=== PATIENT | female | born 1950 | race African-American/Black ===

== ENCOUNTER 2021-07-20 15:24 | Inpatient (IN) | payer MEDICARE, BC ==
[~2021-07-20] VITALS: Ht 165.1 cm; Wt 48.1 kg
[2021-07-20] MEDS ORDERED: IV NORMAL SALINE 1000ML BAG 1,000 ML IV ONE (15:45)
--- NOTE | 2021-07-20 15:51 | PHYS DOC ---
General Adult EDM: Chief Complaint: WEAKNESS/GENERALIZED HPI: HPI: Patient is a 71 year old female who presents with here by EMS after they were called to her home when family went to check on her and she has not been out of bed for 2 days. Patient states last night she took her medications which 2 day s. Patient states she is just too weak to get up out of bed. Patient denies chest pain, shortness of air, dizziness, headache, focal weakness, fever, chills, abdominal pain, nausea, vomiting, diarrhea, numbness or tingling, vision change. Patient states all she takes is Parkinson's medications. She does not know the name or the dosages of her medication. She states she last took her medications 2 days ago. Review of Systems: Review of Systems: Constitutional: Denies fever or chills. [] Eyes: Denies change in visual acuity. [] HENT: Denies nasal congestion or sore throat. [] Respiratory: Denies cough or shortness of breath. [] Cardiovascular: Denies chest pain or edema. [] GI: Denies abdominal pain, nausea, vomiting, bloody stools or diarrhea. [] : Denies dysuria. [] Musculoskeletal: Denies back pain or joint pain. + Generalized weakness [] Integument: Denies rash. [] Neurologic: Denies headache, focal weakness or sensory changes. [] Endocrine: Denies polyuria or polydipsia. [] Lymphatic: Denies swollen glands. [] Psychiatric: Denies depression or anxiety. [] Heart Score: C/O Chest Pain: No Current Medications: Current Medications Medications (Trade) Dose Ordered Sig/Yoanna Start Time Stop Time Status Last Admin Dose Admin Sodium Chloride 1,000 ml @ 1,000 mls/hr 1X ONCE 07/20/21 15:45 07/20/21 16:44 UNV Physical Exam: PE: Constitutional: Well developed, well nourished, no acute distress, non-toxic appearance. [] HENT: Normocephalic, atraumatic, bilateral external ears normal, oropharynx moist, no oral exudates, nose normal. Dry mucous membranes [] Eyes: PERRLA, EOMI, conjunctiva normal, no discharge. [] Neck: Normal range of motion, no tenderness, supple, no stridor. [] Cardiovascular:Heart rate regular rhythm, no murmur [] Lungs & Thorax: Bilateral upper breath sounds clear and lower diminished to aus cultation [] Abdomen: Bowel sounds normal, soft, no tenderness, no masses, no pulsatile masses. [] Skin: Warm, dry, no erythema, no rash. Skin is flaking and dry. Tenting [] Back: No tenderness, no CVA tenderness. [] Extremities: No tenderness, no cyanosis, no clubbing, ROM intact, bilateral lo wer 2+ edema. [] Neurologic: Alert and oriented X 3, normal motor function, normal sensory function, no focal deficits noted. [] Psychologic: Affect normal, judgement normal, mood normal. [] EKG: EK and read by Dr. Lala is a sinus rhythm but no STEMI. Radiology/Procedures: Radiology/Procedures: [] Impression: [place] [id number] IMAGING REPORT Signed PATIENT: ED SMITH ACCOUNT: [id number] : 1950 LOCATION: ER AGE: 71 SEX: F EXAM STATUS: REG ER ORD. PHYSICIAN: ROYA POOL APRN REASON: WEAKNESS PROCEDURE: PORTABLE CHEST 1V EXAM: Chest, single view. HISTORY: Weakness. COMPARISON: None. FINDINGS: A frontal view of the chest is obtained. There is no infiltrate, pleural effusion or pneumothorax. The heart is normal in size. There is hyperinflation likely due to emphysema. IMPRESSION: No acute pulmonary finding. Electronically signed by: Rand Salsa MD (07/20/2021 4:19 PM) [facility] DICTATED and SIGNED BY: RAND SALAS MD DATE: 07/20/21 [id number] [address] IMAGING REPORT Signed PATIENT: ED SMITH ACCOUNT: [id number] : 1950 LOCATION: ER AGE: 71 SEX: F EXAM STATUS: REG ER ORD. PHYSICIAN: ROYA POOL APRN REASON: WEAKNESS PROCEDURE: CT HEAD WO CONTRAST PQRS Compliance Statement: One or more of the following individualized dose reduction techniques were utilized for this examination: 1. Automated exposure control 2. Adjustment of the mA and/or kV according to patient size 3. Use of iterative reconstruction technique CT HEAD WITHOUT CONTRAST History: Reason: WEAKNESS Comparison: None. Technique: Axial images are obtained of the head from the skull base through the vertex without IV contrast. Findings: No mass-effect, midline shift, extra-axial fluid collection, hemorrhage, or obvious acute infarction is identified. Basilar cisterns are patent. The ventricles and sulci are prominent, consistent with generalized cerebral atrophy. There is mild periventricular white matter hypoattenuation. This is a nonspecific finding but is commonly due to chronic small vessel ischemic disease. Bone windows demonstrate no acute calvarial abnormality. The visualized paranasal sinuses are clear. Mastoid air cells are well aerated. IMPRESSION: 1. No acute intracranial abnormality. 2. Generalized cerebral atrophy and mild periventricular white matter changes probably due to chronic small vessel ischemic disease. Electronically signed by: Chris Lozada MD (07/20/2021 4:46 PM) [facility] DICTATED and SIGNED BY: CHRIS OLZADA MD DATE: 07/20/21 [id number] [facility] [address] [facility] [place], [place] [id number] IMAGING REPORT Signed PATIENT: ED SMITH ACCOUNT: [id number] : 1950 LOCATION: [address] [place] [address] AGE: 71 SEX: F EXAM STATUS: ADM IN ORD. PHYSICIAN: ROYA POOL APRN REASON: RASHEED PROCEDURE: RENAL COMPLETE BILATERAL EXAM: Renal sonogram. HISTORY: Renal insufficiency. TECHNIQUE: Sonographic imaging the kidneys and bladder was performed. COMPARISON: 06/08/2019. FINDINGS: The kidneys are normal in size. There is moderate to severe left hydronephrosis. No solid or cystic renal lesion is seen. The bladder is unremarkable. The prevoid bladder volume is 24 cc. The ureteral jets are both seen. There is incidental cholelithiasis. IMPRESSION: 1. Moderate to severe left hydronephrosis. 2. Incidental cholelithiasis. Electronically signed by: Rand Salas MD (07/20/2021 5:52 PM) [facility] DICTATED and SIGNED BY: RAND SALAS MD DATE: 07/20/21 [id number] Course & Med Decision Making: Course & Med Decision Making Pertinent Labs and Imaging studies reviewed. (See chart for details) See HPI. Alert and oriented x4. Speaks in full clear sentences. Answers my questions appropriately. Abdomen soft and nontender. Very frail. Skin is pink, very dry and warm. Bilateral lower extremity 2+ swelling. Cap refill less than 2 seconds. She is afebrile. Mucous membranes are dry. Lungs are clear in upper lobes and diminished in lower lobes. [] Dragon Disclaimer: Dragon Disclaimer: This electronic medical record was generated, in whole or in part, using a voice recognition dictation system. Departure Departure Impression: Primary Impression: RASHEED (acute kidney injury) Additional Impressions: UTI (urinary tract infection) Qualified Codes: N39.0 - Urinary tract infection, site not specified; R31.9 - Hematuria, unspecified Hypernatremia Generalized weakness Unable to care for self Disposition: ADMITTED INPATIENT Admitting Physician: HIMCarmelo Condition: STABLE Referrals: YANNI VIRAMONTES (PCP) ROYA POOL APRN Jul 20, 2021 15:51
[2021-07-20 16:00] LABS: BILIRUBIN,URINE MODERATE (NEG); CLARITY,URINE CLOUDY; COLOR,URINE AMBER; NITRITE,URINE NEGATIVE (NEG); PROTEIN,URINE 30 mg/dL (NEG-TRACE)
[2021-07-20 16:10] LABS: RBC,URINE OCC /HPF (0-2); WBC,URINE >40 /HPF (0-4)
[2021-07-20 16:12] LABS: BACTERIA,URINE MODERATE /HPF (0-FEW)
[2021-07-20 16:20] LABS: BASO % 1 % (0-3); EOS % 0 % (0-3); HEMATOCRIT 49.6 % (36.0-47.0); HEMOGLOBIN 16.2 g/dL (12.0-15.5); LYMPH # 0.7 x10^3/uL (1.0-4.8); LYMPH % 11 % (24-48); MEAN CORPUSCULAR HEMOGLOBIN 32 pg (25-35); MEAN CORPUSCULAR HGB CONC 33 g/dL (31-37); MEAN CORPUSCULAR VOLUME 98 fL (79-100); MONO # 0.4 x10^3/uL (0.0-1.1); MONO % 6 % (0-9); NEUT # 5.3 x10^3/uL (1.8-7.7); NEUT % 83 % (31-73); PLATELET COUNT 159 x10^3/uL (140-400); RED BLOOD COUNT 5.05 x10^6/uL (3.50-5.40); RED CELL DISTRIBUTION WIDTH 12.4 % (11.5-14.5); WHITE BLOOD COUNT 6.5 x10^3/uL (4.0-11.0)
--- NOTE | 2021-07-20 16:21 | RAD ---
EXAM: Chest, single view. HISTORY: Weakness. COMPARISON: None. FINDINGS: A frontal view of the chest is obtained. There is no infiltrate, pleural effusion or pneumo thorax. The heart is normal in size. There is hyperinflation likely due to emphysema. IMPRESSION: No acute pulmonary finding. Electronically signed by: Rand Cornejo MD (07/20/2021 4:19 PM) [facility]
[2021-07-20 16:36] LABS: CALCIUM 11.1 mg/dL (8.5-10.1); CREATININE 1.4 mg/dL (0.6-1.0); GFR 44.7; POTASSIUM 4.2 mmol/L (3.5-5.1)
[2021-07-20 16:42] LABS: ALBUMIN 4.5 g/dL (3.4-5.0); ALBUMIN/GLOBULIN RATIO 0.9 (1.0-1.7); TOTAL BILIRUBIN 2.2 mg/dL (0.2-1.0); TOTAL PROTEIN 9.3 g/dL (6.4-8.2)
[2021-07-20] MEDS ORDERED: cefTRIAXone IV Push 1 GM VIAL. IVP ONE (16:45)
--- NOTE | 2021-07-20 16:48 | RAD ---
PQRS Compliance Statement: One or more of the following individualized dose reduction techniques were utilized for this examinat ion: 1. Automated exposure control 2. Adjustment of the mA and/or kV according to patient size 3. Use of iterative reconstruction technique CT HEAD WITHOUT CONTRAST History: Reason: WEAKNESS Comparison: None. Technique: Axial images are obtained of the head from the skull base through the vertex without IV co ntrast. Findings: No mass-effect, midline shift, extra-axial fluid collection, hemorrhage, or obvious acute infarction is identified. Basilar cisterns are patent. The ventricles and sulci are prominent, consistent with generalized cerebral atrophy. There is mild p eriventricular white matter hypoattenuation. This is a nonspecific finding but is commonly due to ch ronic small vessel ischemic disease. Bone windows demonstrate no acute calvarial abnormality. The visualized paranasal sinuses are clear. Mastoid air cells are well aerated. IMPRESSION: 1. No acute intracranial abnormality. 2. Generalized cerebral atrophy and mild periventricular white matter changes probably due to chroni c small vessel ischemic disease. Electronically signed by: Chris Lozada MD (07/20/2021 4:46 PM) [facility]
[2021-07-20 16:51] LABS: INFLUENZA A PATIENT NEGATIVE (NEGATIVE); INFLUENZA B PATIENT NEGATIVE (NEGATIVE)
[2021-07-20] MEDS ORDERED: RINGERS LACTATED IV ONE (17:00)
[2021-07-20] MEDS ORDERED: MV-M1TAB7 PO (17:01)
[2021-07-20] MEDS ORDERED: RIVA3CAP15 PO (17:01)
[2021-07-20] MEDS ORDERED: MULT-735 PO (17:01)
[2021-07-20] MEDS ORDERED: CARB1TAB22 PO (17:01)
[2021-07-20] MEDS: RIVASTIGMINE 1.5 MG CAPSULE. PO SCH (17:48)
--- NOTE | 2021-07-20 17:55 | RAD ---
EXAM: Renal sonogram. HISTORY: Renal insufficiency. TECHNIQUE: Sonographic imaging the kidneys and bladder was performed. COMPARISON: 06/08/2019. FINDINGS: The kidneys are normal in size. There is moderate to severe left hydronephrosis. No solid o r cystic renal lesion is seen. The bladder is unremarkable. The prevoid bladder volume is 24 cc. The ureteral jets are both seen. There is incidental cholelithiasis. IMPRESSION: 1. Moderate to severe left hydronephrosis. 2. Incidental cholelithiasis. Electronically signed by: Rand Cornejo MD (07/20/2021 5:52 PM) [facility]
[2021-07-20] MEDS ORDERED: ACETAMINOPHEN 325 MG TABLET. PO PRN (18:00)
[2021-07-20] MEDS ORDERED: hydrALAZINE 20 MG/ML VIAL. IVP PRN (18:00)
[2021-07-20] MEDS ORDERED: ONDANSETRON PF 4 MG/2 ML VIAL. IVP PRN (18:00)
[2021-07-20] MEDS ORDERED: CARBIDOPA/LEVODOPA 25/100MG TABLET PO SCH (18:00)
[2021-07-20 18:47] VITALS: BP 158/96
[2021-07-20 18:55] LABS: MAGNESIUM 2.9 mg/dL (1.8-2.4); PHOSPHORUS 4.2 mg/dL (2.6-4.7)
[2021-07-20] MEDS: IV NORMAL SALINE 1000ML BAG 1,000 ML IV SCH (20:23)
[2021-07-20] MEDS: CARBIDOPA/LEVODOPA 25/100MG TABLET PO SCH (20:23)
[2021-07-20] MEDS: CHOLECALCIFEROL (VITAMIN D3) 1,000 UNIT TABLET PO SCH (20:23)
[2021-07-20] MEDS ORDERED: RIVASTIGMINE TARTRATE 3 MG PO SCH (21:00)
--- NOTE | 2021-07-20 21:07 | EKG ---
[facility] [address] [place] [address] Test Date: 2021-07-20 Test Time: 15:38:18 Pat Name: ED SMITH Department: Room: [facility] Gender: F [employer]: : 1950 Requested By: ROYA POOL Order Number: [id number] Reading MD: Yehuda Dang Measurements Intervals [place] Rate: 94 P: 56 GA: 138 QRS: 26 QRSD: 76 T: 95 QT: 334 QTc: 418 Interpretive Statements SINUS RHYTHM T ABNORMALITY IN HIGH LATERAL LEADS ABNORMAL ECG RI6.02 No previous ECG available for comparison Electronically Signed On 07-21-2021 13:51:12 BLOCK PAVER by Yehuda Dang
[2021-07-20 23:00] VITALS: BP 153/82
--- NOTE | 2021-07-21 03:26 | HP ---
DATE OF SERVICE: 07/20/2021 ADMIT DATE: 07/20/2021 CHIEF COMPLAINT: Probable failure to thrive and weakness, can not get out of bed. HISTORY OF PRESENT ILLNESS: The patient is a pleasant 71-year-old female who apparently lives by herself. She states her family checks on her a few times a week and brings her food. Apparently for the past couple of days, she has not been able to get out of bed. When the family came in today, they went ahead and called the ambulance. While in the ER, we noticed that she is dehydrated. She has got azotemia with a BUN of 52. Her sodium is also up to 154. She has UTI. I discussed the case with ER physician. We are going to admit the patient, give her IV antibiotics and fluids and probably have nursing home social worker consider getting her placed in a long-term care or half-way. PAST MEDICAL HISTORY: Arthritis, advanced age, and dementia. I suspect she has Parkinson's as she is on Sinemet or she has restless legs, she did not really clarify that with me. ALLERGIES: None. FAMILY HISTORY: Diabetes. SOCIAL HISTORY: She lives alone. Does not drink, smoke or take drugs. MEDICATIONS: Reviewed. She is on 4 including Sinemet, vitamins and rivastigmine. REVIEW OF SYSTEMS: Difficult to obtain. The patient has poor memory, but she does complain of weakness and decreased appetite. PHYSICAL EXAMINATION: VITALS: Within normal limits and are stable. GENERAL: She is very weak, has poor memory. She is a poor historian. She is frail. HEENT: She has poor dentition. EYES: Extraocular muscles are intact, pupils are equally round and reactive to light and accommodation MUSCULOSKELETAL: Well developed, well nourished, good range of motion ENDOCRINE: No thyromegaly was palpated LYMPHATICS: No cervical chain or axillary nodes were noted HEMATOPOIETIC: No bruising NECK: Supple, no JVD, no thyromegaly was noted. LUNGS: Clear to auscultation in all lung sanchez without rhonchi or wheezing. HEART: RRR, S1, S2 present. Peripheral pulses intact, no obvious murmurs were noted. ABDOMEN: Soft, nontender. Positive bowel sounds no organomegaly, normal bowel sounds. EXTREMITIES: Without any cyanosis, clubbing, or edema. Pedal pulses intact, Homans sign is negative. NEUROLOGIC: She is very weak, has poor memory. She is a poor historian. She is frail. PSYCHIATRIC: She is very weak, has poor memory. She is a poor historian. She is frail. SKIN: No ulcerations or rashes, good skin turgor, no jaundice. VASCULAR: Good capillary refill, neurovascular bundle appears to be intact. LABORATORY DATA: Hemoglobin 16.2, white count 6.5, and platelets 159. Electrolytes: Sodium 154, potassium 4.2, chloride 109, bicarb 24, BUN 52, creatinine 1.4, and glucose 103. COVID testing is negative. DIAGNOSTIC DATA: Chest x-ray negative. CT of the head, atrophy and white matter changes. Ultrasound of the abdomen shows left hydronephrosis and incidental finding of gallstones. ASSESSMENT AND PLAN: Probable failure to thrive in an elderly female who lives at home and has progressing dementia with incidental finding of urinary tract infection, azotemia, dehydration, gallstones and hydronephrosis. The patient ____. We will give her IV fluids, IV antibiotics, PT, OT. Consult nursing home social worker. Home meds. Deep vein thrombosis prophylaxis. Full code. Consult Urology and Nephrology. Long-term prognosis is guarded. BAO/GUILHERME/MALORIE DR: BAO/peg TID: [id number]
[2021-07-21 04:37] LABS: BASO # 0.1 x10^3/uL (0.0-0.2); BASO % 1 % (0-3); EOS # 0.1 x10^3/uL (0.0-0.7); EOS % 1 % (0-3); HEMATOCRIT 38.6 % (36.0-47.0); HEMOGLOBIN 12.8 g/dL (12.0-15.5); LYMPH # 1.1 x10^3/uL (1.0-4.8); LYMPH % 16 % (24-48); MEAN CORPUSCULAR HEMOGLOBIN 33 pg (25-35); MEAN CORPUSCULAR HGB CONC 33 g/dL (31-37); MEAN CORPUSCULAR VOLUME 99 fL (79-100); MONO # 0.5 x10^3/uL (0.0-1.1); MONO % 7 % (0-9); NEUT # 5.3 x10^3/uL (1.8-7.7); NEUT % 76 % (31-73); PLATELET COUNT 118 x10^3/uL (140-400); RED BLOOD COUNT 3.91 x10^6/uL (3.50-5.40); RED CELL DISTRIBUTION WIDTH 12.2 % (11.5-14.5)
[2021-07-21 05:05] LABS: ALBUMIN 3.2 g/dL (3.4-5.0); ALBUMIN/GLOBULIN RATIO 0.9 (1.0-1.7); CALCIUM 9.5 mg/dL (8.5-10.1); GFR 65.9; POTASSIUM 4.1 mmol/L (3.5-5.1); TOTAL BILIRUBIN 1.9 mg/dL (0.2-1.0); TOTAL PROTEIN 6.6 g/dL (6.4-8.2)
[2021-07-21 07:00] VITALS: BP 135/80
--- NOTE | 2021-07-21 08:19 | PDOC ---
[employer] PROGRESS NOTE Date of Service DOS: DATE: 07/21/21 TIME: 08:10 Chief Complaint Chief Complaint Hypernatremia RASHEED Left Hydronephrosis Parkinsonism Elevated bilirubin Lactic acidosis History of Present Illness History of Present Illness Ms. Hammonds is a 71-year-old female past medical history of Parkinson disease with signs of early dementia comes in via EMS to the ED for further evaluation. Family had called to check on her and was unable to get a hold of her for the last 2 days patient notes she not been eating and drinking and did not take any medication for at least 2 days lives by herself. Is pleasantly confused in the ED initial evaluation. Initial labs of Hb 16.2, NA 154, BUN 52, CR 1.4, calcium 11.1 bilirubin 2.2, CK 249, lactic acid 2.7 EKG sinus rhythm rate of 94 bpm normal axis intervals QTC [address] segment elevations or T WI. Renal sonogram reveals moderate to severe left hydronephrosis. Chest radiograph with no acute findings Due to confusion she underwent CT head which showed no acute intracranial ab normality. 07/21: Seen bedside weak not moving her upper extremities well. Nursing unable to obtain IV access. She knows she needs assistance for feeding and her sister only helps her at home which she lives alone. Vitals/I&O Vitals/I&O: Vital Signs Date Time Temp Pulse Resp B/P (MAP) Pulse Ox O2 Delivery O2 Flow Rate FiO2 07/21/21 03:00 69 Room Air 07/20/21 23:00 97.0 18 153/82 (105) 93 97.0 I & O 07/20/21 07/20/21 07/21/21 15:00 23:00 07:00 Intake Total 800 ml Balance 800 ml Physical Exam General: Alert, Cooperative Heart: Regular rate Lungs: Clear Abdomen: Normal bowel sounds, Soft Skin: Other (Xerosis) Labs Labs: Laboratory Tests Test 07/20/21 15:40 07/20/21 16:05 07/20/21 16:23 07/21/21 04:00 Urine Collection Type Unknown Urine Color Maia Urine Clarity Cloudy Urine pH 5.0 (<5.0-8.0) Urine Specific [place] 1.025 (1.000-1.030) Urine Protein 30 mg/dL (NEG-TRACE) Urine Glucose (UA) Negative mg/dL (NEG) Urine Ketones (Stick) Trace mg/dL (NEG) Urine Blood Trace (NEG) Urine Nitrite Negative (NEG) Urine Bilirubin Moderate (NEG) Urine Urobilinogen Dipstick 1.0 mg/dL (0.2 mg/dL) Urine Leukocyte Esterase Moderate (NEG) Urine RBC Occ /HPF (0-2) Urine WBC >40 /HPF (0-4) Urine Squamous Epithelial Cells Many /LPF Urine Bacteria Moderate /HPF (0-FEW) Urine Mucus Marked /LPF White Blood Count 6.5 x10^3/uL (4.0-11.0) 7.0 x10^3/uL (4.0-11.0) Red Blood Count 5.05 x10^6/uL (3.50-5.40) 3.91 x10^6/uL (3.50-5.40) Hemoglobin 16.2 g/dL (12.0-15.5) 12.8 g/dL (12.0-15.5) Hematocrit 49.6 % (36.0-47.0) 38.6 % (36.0-47.0) Mean Corpuscular Volume 98 fL (79-100) 99 fL (79-100) Mean Corpuscular Hemoglobin 32 pg (25-35) 33 pg (25-35) Mean Corpuscular Hemoglobin Concent 33 g/dL (31-37) 33 g/dL (31-37) Red Cell Distribution Width 12.4 % (11.5-14.5) 12.2 % (11.5-14.5) Platelet Count 159 x10^3/uL (140-400) 118 x10^3/uL (140-400) Neutrophils (%) (Auto) 83 % (31-73) 76 % (31-73) Lymphocytes (%) (Auto) 11 % (24-48) 16 % (24-48) Monocytes (%) (Auto) 6 % (0-9) 7 % (0-9) Eosinophils (%) (Auto) 0 % (0-3) 1 % (0-3) Basophils (%) (Auto) 1 % (0-3) 1 % (0-3) Neutrophils # (Auto) 5.3 x10^3/uL (1.8-7.7) 5.3 x10^3/uL (1.8-7.7) Lymphocytes # (Auto) 0.7 x10^3/uL (1.0-4.8) 1.1 x10^3/uL (1.0-4.8) Monocytes # (Auto) 0.4 x10^3/uL (0.0-1.1) 0.5 x10^3/uL (0.0-1.1) Eosinophils # (Auto) 0.0 x10^3/uL (0.0-0.7) 0.1 x10^3/uL (0.0-0.7) Basophils # (Auto) 0.0 x10^3/uL (0.0-0.2) 0.1 x10^3/uL (0.0-0.2) Sodium Level 154 mmol/L (136-145) 155 mmol/L (136-145) Potassium Level 4.2 mmol/L (3.5-5.1) 4.1 mmol/L (3.5-5.1) Chloride Level 109 mmol/L (98-107) 117 mmol/L (98-107) Carbon Dioxide Level 24 mmol/L (21-32) 28 mmol/L (21-32) Anion Gap 21 (6-14) 10 (6-14) Blood Urea Nitrogen 52 mg/dL (7-20) 41 mg/dL (7-20) Creatinine 1.4 mg/dL (0.6-1.0) 1.0 mg/dL (0.6-1.0) Estimated GFR (Cockcroft-Gault) 44.7 65.9 BUN/Creatinine Ratio 37 (6-20) 41 (6-20) Glucose Level 103 mg/dL (70-99) 90 mg/dL (70-99) Lactic Acid Level 2.7 mmol/L (0.4-2.0) 1.3 mmol/L (0.4-2.0) Calcium Level 11.1 mg/dL (8.5-10.1) 9.5 mg/dL (8.5-10.1) Phosphorus Level 4.2 mg/dL (2.6-4.7) Magnesium Level 2.9 mg/dL (1.8-2.4) Total Bilirubin 2.2 mg/dL (0.2-1.0) 1.9 mg/dL (0.2-1.0) Aspartate Amino Transf (AST/SGOT) 19 U/L (15-37) 23 U/L (15-37) Alanine Aminotransferase (ALT/SGPT) 19 U/L (14-59) 6 U/L (14-59) Alkaline Phosphatase 112 U/L (46-116) 85 U/L (46-116) Creatine Kinase 249 U/L (26-192) Troponin I High Sensitivity 14 ng/L (4-50) RL-Wth-R-Type Natriuretic Peptide 130 pg/mL (0-124) Total Protein 9.3 g/dL (6.4-8.2) 6.6 g/dL (6.4-8.2) Albumin 4.5 g/dL (3.4-5.0) 3.2 g/dL (3.4-5.0) Albumin/Globulin Ratio 0.9 (1.0-1.7) 0.9 (1.0-1.7) Influenza Type A Antigen Negative (NEGATIVE) Influenza Type B Antigen Negative (NEGATIVE) SARS-CoV-2 Antigen (Rapid) Negative (NEGATIVE) Assessment and Plan Assessmemt and Plan Problems Medical Problems: (1) RASHEED (acute kidney injury) Status: Acute (2) Generalized weakness Status: Acute (3) Hypernatremia Status: Acute (4) Unable to care for self Status: Acute (5) UTI (urinary tract infection) Status: Acute Comment Review of Relevant I have reviewed the following items dhiraj (where applicable) has been applied. Medications: Current Medications Medications (Trade) Dose Ordered Sig/Yoanna Route PRN Reason Start Time Stop Time Status Last Admin Dose Admin Sodium Chloride 1,000 ml @ 1,000 mls/hr 1X ONCE IV 07/20/21 15:45 07/20/21 16:44 DC 07/20/21 16:22 Ceftriaxone Sodium (Rocephin) 1 gm 1X ONCE IVP 07/20/21 16:45 07/20/21 16:46 DC 07/20/21 16:52 Rivastigmine Tartrate (Exelon) 3 mg BIDWMEALS PO 07/20/21 17:00 07/20/21 17:48 Carbidopa/Levodopa (Sinemet 25/100) 1 tab [id number] PO 07/20/21 18:00 07/20/21 19:35 DC 07/20/21 17:51 Ringer's Solution 920 ml @ 920 mls/hr 1X ONCE IV 07/20/21 17:00 07/20/21 17:59 DC 07/20/21 17:55 Sodium Chloride 1,000 ml @ 75 mls/hr [id number] IV 07/20/21 20:00 07/20/21 20:23 Carbidopa/Levodopa (Sinemet 25/100) 1.5 tab QID PO 07/20/21 21:00 07/20/21 20:23 Vitamin D (Vitamin D3) 1,000 unit BID PO 07/20/21 21:00 07/20/21 20:23 Justifications for Admission Other Justification DARRIN HAWKINS MD Jul 21, 2021 08:19
[2021-07-21] MEDS: IV NORMAL SALINE 1000ML BAG 1,000 ML IV SCH ×2 (09:20→22:40)
[2021-07-21] MEDS: CARBIDOPA/LEVODOPA 25/100MG TABLET PO SCH ×4 (09:50→19:53)
[2021-07-21] MEDS: RIVASTIGMINE 1.5 MG CAPSULE. PO SCH ×2 (09:51→18:03)
[2021-07-21] MEDS: MULTIVITAMIN with MINERAL TABLET. PO SCH (09:51)
[2021-07-21] MEDS: CHOLECALCIFEROL (VITAMIN D3) 1,000 UNIT TABLET PO SCH ×2 (09:51→19:53)
[2021-07-21 11:00] VITALS: BP 118/74
[2021-07-21 15:00] VITALS: BP 155/80
--- NOTE | 2021-07-21 17:27 | CONS ---
DATE OF CONSULTATION: 07/21/2021 REQUESTING PHYSICIAN: Hospitalist. REASON FOR CONSULTATION: Renal failure and hypernatremia. HISTORY OF PRESENT ILLNESS: A 71-year-old female with history of dementia and degenerative arthritis. The patient resides by herself with assistance from family. She has become unable to get out of her bed. She was brought to the hospital and found to have abnormal labs including serum sodium increased to 154. In this setting, Nephrology evaluation requested. PAST MEDICAL HISTORY: Dementia, degenerative arthritis, Parkinson's disease. ALLERGIES: None. MEDICATIONS: Noted per medication list. FAMILY HISTORY: Noncontributory. SOCIAL HISTORY: The patient resides independently with some assistance from family. No alcohol use, no tobacco use, no recreational drug use. REVIEW OF SYSTEMS: The patient has reduced capacity and as such, other than weakness, inability to ambulate out of her bed, further remainder review of systems is unremarkable. PHYSICAL EXAMINATION: GENERAL APPEARANCE: Weak, reduced attention to detail. HEENT: Clear with poor dentition. NECK: No increased JVD. LUNGS: Clear. CARDIAC: Without S3 or rub. ABDOMEN: Soft, nontender. EXTREMITIES: Without edema. NEUROPSYCHIATRIC: Very poor memory and difficulty following. LABORATORY DATA: On presentation, creatinine 1.4, GFR 44.7. Sodium 154. Current sodium 155, potassium 4.1, chloride 117, CO2 of 28, BUN 41, creatinine 1, GFR 65.9. IMPRESSION: 1. Dehydration secondary to reduced intravascular volume, likely related to immobility. 2. Hypernatremia due to free water deficit, i.e., dehydration. 3. Renal failure -- the patient likely has underlying chronic kidney disease stage II. Exacerbation on presentation due to dehydration. RECOMMENDATIONS: 1. IV fluid administration to include increased free water. 2. We will trend labs. 3. Renal ultrasound reveals moderate to severe left hydronephrosis and needs evaluation by Urology. MORGAN DR: Briseyda TID: [id number]
[2021-07-21] MEDS: cefTRIAXone IV Push 1 GM VIAL. IVP SCH (18:03)
[2021-07-21 19:00] VITALS: BP 134/79
[2021-07-21] MEDS: LACTOBACILLUS RHAMNOSUS GG 1 CAPSULE. PO SCH (19:53)
[2021-07-21 23:00] VITALS: BP 149/81
[2021-07-22] VITALS (7 sets, daily range): BP systolic 107–203; BP diastolic 59–110
[2021-07-22 06:45] LABS: ALBUMIN 2.8 g/dL (3.4-5.0); ALBUMIN/GLOBULIN RATIO 0.9 (1.0-1.7); ALK PHOS 74 U/L (46-116); ANION GAP 10 (6-14); AST (SGOT) 16 U/L (15-37); BLOOD UREA NITROGEN 26 mg/dL (7-20); BUN/CREATININE RATIO 33 (6-20); CALCIUM 8.7 mg/dL (8.5-10.1); CARBON DIOXIDE 27 mmol/L (21-32); CHLORIDE 117 mmol/L (98-107); CREATININE 0.8 mg/dL (0.6-1.0); GFR 85.3; GLUCOSE 93 mg/dL (70-99); POTASSIUM 3.6 mmol/L (3.5-5.1); SODIUM 154 mmol/L (136-145); TOTAL BILIRUBIN 1.4 mg/dL (0.2-1.0); TOTAL PROTEIN 5.8 g/dL (6.4-8.2)
[2021-07-22 06:52] LABS: ALT (SGPT) < 6 U/L (14-59)
[2021-07-22 07:00] LABS: BASO % 1 % (0-3); EOS # 0.1 x10^3/uL (0.0-0.7); EOS % 2 % (0-3); HEMOGLOBIN 11.3 g/dL (12.0-15.5); LYMPH # 0.9 x10^3/uL (1.0-4.8); LYMPH % 18 % (24-48); MEAN CORPUSCULAR HEMOGLOBIN 33 pg (25-35); MEAN CORPUSCULAR HGB CONC 33 g/dL (31-37); MEAN CORPUSCULAR VOLUME 98 fL (79-100); MONO # 0.4 x10^3/uL (0.0-1.1); MONO % 8 % (0-9); NEUT # 3.6 x10^3/uL (1.8-7.7); NEUT % 71 % (31-73); PLATELET COUNT 90 x10^3/uL (140-400); RED BLOOD COUNT 3.45 x10^6/uL (3.50-5.40); RED CELL DISTRIBUTION WIDTH 11.8 % (11.5-14.5); WHITE BLOOD COUNT 5.1 x10^3/uL (4.0-11.0)
[2021-07-22] MEDS: CHOLECALCIFEROL (VITAMIN D3) 1,000 UNIT TABLET PO SCH ×2 (09:20→21:18)
[2021-07-22] MEDS: LACTOBACILLUS RHAMNOSUS GG 1 CAPSULE. PO SCH ×2 (09:20→21:18)
[2021-07-22] MEDS: RIVASTIGMINE 1.5 MG CAPSULE. PO SCH ×2 (09:20→18:15)
[2021-07-22] MEDS: MULTIVITAMIN with MINERAL TABLET. PO SCH (09:20)
[2021-07-22] MEDS: CARBIDOPA/LEVODOPA 25/100MG TABLET PO SCH ×4 (09:20→21:18)
--- NOTE | 2021-07-22 09:35 | PDOC ---
DATE OF SERVICE DATE: 07/22/21 TIME: 09:25 SUBJECTIVE ROS Resting comfortably, denies any complaints. Denies N/V. No SOB States didnt get breakfast this morning OBJECTIVE Vital Signs Vital Signs Date Time Temp Pulse Resp B/P (MAP) Pulse Ox O2 Delivery O2 Flow Rate FiO2 07/22/21 09:22 165/89 (114) 07/22/21 07:00 98.0 70 18 99 Room Air 98.0 I & 0 Intake and Output 07/22/21 07:00 Intake Total 0 ml Balance 0 ml Intake Oral 0 ml # Voids 4 PHYSICAL EXAM Physical Exam GENERAL : NAD HEENT:OM moist NECK: supple LUNGS: CTA, Non labored CARDIAC: Without S3 or rub. ABDOMEN: Soft, nontender.BS + EXTREMITIES: No edema, or Cyanosis NEURO Grossly normal PSYCH poor memory and difficulty following No Rico DIAGNOSIS/ASSESSMENT Assessment & Plan RASHEED - 2/2 Dehydration, resolved. Supportive care, maintain fluid balance, strict I/O (not recorded) , avoid nephrotoxins Dehydration secondary to reduced intravascular volume, likely related to immobility. Hypernatremia due to free water deficit, stable .Encourage water intake, switch to IVF to Hypotonic fluid Chronic kidney disease stage II. Abnormal Renal US - reveals moderate to severe left hydronephrosis . No Urinary retention on US Recommend evaluation by Urology. COMMENT/RELEVANT DATA Meds Current Medications Medications (Trade) Dose Ordered Sig/Yoanna Start Time Stop Time Status Last Admin Dose Admin Acetaminophen (Tylenol) 650 mg PRN Q6HRS PRN 07/20/21 18:00 Carbidopa/Levodopa (Sinemet 25/100) 1.5 tab QID 07/20/21 21:00 07/22/21 09:20 1.5 TAB Ceftriaxone Sodium (Rocephin) 1 gm Q24H 07/21/21 18:00 07/21/21 18:03 1 GM Hydralazine HCl (Apresoline Inj) 10 mg PRN Q4HRS PRN 07/20/21 18:00 Lactobacillus Rhamnosus (Culturelle) 1 cap BID 07/21/21 21:00 07/22/21 09:20 1 CAP Multivitamins (Thera M Plus) 1 tab DAILY 07/21/21 09:00 07/22/21 09:20 1 TAB Non-Formulary Medication (Rivastigmine Tartrate (Rivastigmine)) 3 mg BID 07/20/21 21:00 UNV Ondansetron HCl (Zofran) 4 mg PRN Q4HRS PRN 07/20/21 18:00 Ringer's Solution 920 ml @ 920 mls/hr 1X ONCE 07/20/21 17:00 07/20/21 17:59 DC 07/20/21 17:55 920 MLS/HR Rivastigmine Tartrate (Exelon) 3 mg BIDWMEALS 07/20/21 17:00 07/22/21 09:20 3 MG Sodium Chloride 1,000 ml @ 75 mls/hr [id number] 07/20/21 20:00 07/21/21 22:40 75 MLS/HR Vitamin D (Vitamin D3) 1,000 unit BID 07/20/21 21:00 07/22/21 09:20 1,000 UNIT Lab Laboratory Tests Test 07/22/21 06:00 White Blood Count 5.1 x10^3/uL (4.0-11.0) Red Blood Count 3.45 x10^6/uL (3.50-5.40) Hemoglobin 11.3 g/dL (12.0-15.5) Hematocrit 34.0 % (36.0-47.0) Mean Corpuscular Volume 98 fL (79-100) Mean Corpuscular Hemoglobin 33 pg (25-35) Mean Corpuscular Hemoglobin Concent 33 g/dL (31-37) Red Cell Distribution Width 11.8 % (11.5-14.5) Platelet Count 90 x10^3/uL (140-400) Neutrophils (%) (Auto) 71 % (31-73) Lymphocytes (%) (Auto) 18 % (24-48) Monocytes (%) (Auto) 8 % (0-9) Eosinophils (%) (Auto) 2 % (0-3) Basophils (%) (Auto) 1 % (0-3) Neutrophils # (Auto) 3.6 x10^3/uL (1.8-7.7) Lymphocytes # (Auto) 0.9 x10^3/uL (1.0-4.8) Monocytes # (Auto) 0.4 x10^3/uL (0.0-1.1) Eosinophils # (Auto) 0.1 x10^3/uL (0.0-0.7) Basophils # (Auto) 0.0 x10^3/uL (0.0-0.2) Sodium Level 154 mmol/L (136-145) Potassium Level 3.6 mmol/L (3.5-5.1) Chloride Level 117 mmol/L (98-107) Carbon Dioxide Level 27 mmol/L (21-32) Anion Gap 10 (6-14) Blood Urea Nitrogen 26 mg/dL (7-20) Creatinine 0.8 mg/dL (0.6-1.0) Estimated GFR (Cockcroft-Gault) 85.3 BUN/Creatinine Ratio 33 (6-20) Glucose Level 93 mg/dL (70-99) Calcium Level 8.7 mg/dL (8.5-10.1) Magnesium Level 2.0 mg/dL (1.8-2.4) Total Bilirubin 1.4 mg/dL (0.2-1.0) Aspartate Amino Transf (AST/SGOT) 16 U/L (15-37) Alanine Aminotransferase (ALT/SGPT) < 6 U/L (14-59) Alkaline Phosphatase 74 U/L (46-116) Total Protein 5.8 g/dL (6.4-8.2) Albumin 2.8 g/dL (3.4-5.0) Albumin/Globulin Ratio 0.9 (1.0-1.7) Results All relevant outside records, renal labs, imaging studies, telemetry/EKG's were reviewed. Justicifation of Admission Dx: Justifications for Admission: Justification of Admission Dx: N/A AXEL NATARAJAN MD Jul 22, 2021 09:35
--- NOTE | 2021-07-22 10:08 | PDOC ---
[facility] PROGRESS NOTE Date of Service DOS: DATE: 07/22/21 TIME: 10:06 Chief Complaint Chief Complaint Hypernatremia RASHEED Left Hydronephrosis Parkinsonism Elevated bilirubin Lactic acidosis History of Present Illness History of Present Illness Ms. Hammonds is a 71-year-old female past medical history of Parkinson disease with signs of early dementia comes in via EMS to the ED for further evaluation. Family had called to check on her and was unable to get a hold of her for the last 2 days patient notes she not been eating and drinking and did not take any medication for at least 2 days lives by herself. Is pleasantly confused in the ED initial evaluation. Initial labs of Hb 16.2, NA 154, BUN 52, CR 1.4, calcium 11.1 bilirubin 2.2, CK 249, lactic acid 2.7 EKG sinus rhythm rate of 94 bpm normal axis intervals QTC [address] segment elevations or T WI. Renal sonogram reveals moderate to severe left hydronephrosis. Chest radiograph with no acute findings Due to confusion she underwent CT head which showed no acute intracranial ab normality. 07/21: Seen bedside weak not moving her upper extremities well. Nursing unable to obtain IV access. She knows she needs assistance for feeding and her sister only helps her at home which she lives alone. 07/22 Patient evaluated examined at bedside. Flat affect. Difficult to understand. Said she was feeling okay though. CT done this morning results pending. Urolog y consulted. PT OT recommending SNF placement. Otherwise continue current. Nephrology following as well. Vitals/I&O Vitals/I&O: Vital Signs Date Time Temp Pulse Resp B/P (MAP) Pulse Ox O2 Delivery O2 Flow Rate FiO2 07/22/21 09:22 165/89 (114) 07/22/21 08:00 Room Air 07/22/21 07:00 98.0 70 18 99 98.0 I & O 07/21/21 07/21/21 07/22/21 15:00 23:00 07:00 Intake Total 0 ml 0 ml Balance 0 ml 0 ml Physical Exam General: Alert, Cooperative, No acute distress Heart: Regular rate Lungs: Clear Abdomen: Normal bowel sounds, Soft Extremities: No edema, Normal pulses Skin: Other (Xerosis) Labs Labs: Laboratory Tests Test 07/22/21 06:00 White Blood Count 5.1 x10^3/uL (4.0-11.0) Red Blood Count 3.45 x10^6/uL (3.50-5.40) Hemoglobin 11.3 g/dL (12.0-15.5) Hematocrit 34.0 % (36.0-47.0) Mean Corpuscular Volume 98 fL (79-100) Mean Corpuscular Hemoglobin 33 pg (25-35) Mean Corpuscular Hemoglobin Concent 33 g/dL (31-37) Red Cell Distribution Width 11.8 % (11.5-14.5) Platelet Count 90 x10^3/uL (140-400) Neutrophils (%) (Auto) 71 % (31-73) Lymphocytes (%) (Auto) 18 % (24-48) Monocytes (%) (Auto) 8 % (0-9) Eosinophils (%) (Auto) 2 % (0-3) Basophils (%) (Auto) 1 % (0-3) Neutrophils # (Auto) 3.6 x10^3/uL (1.8-7.7) Lymphocytes # (Auto) 0.9 x10^3/uL (1.0-4.8) Monocytes # (Auto) 0.4 x10^3/uL (0.0-1.1) Eosinophils # (Auto) 0.1 x10^3/uL (0.0-0.7) Basophils # (Auto) 0.0 x10^3/uL (0.0-0.2) Sodium Level 154 mmol/L (136-145) Potassium Level 3.6 mmol/L (3.5-5.1) Chloride Level 117 mmol/L (98-107) Carbon Dioxide Level 27 mmol/L (21-32) Anion Gap 10 (6-14) Blood Urea Nitrogen 26 mg/dL (7-20) Creatinine 0.8 mg/dL (0.6-1.0) Estimated GFR (Cockcroft-Gault) 85.3 BUN/Creatinine Ratio 33 (6-20) Glucose Level 93 mg/dL (70-99) Calcium Level 8.7 mg/dL (8.5-10.1) Magnesium Level 2.0 mg/dL (1.8-2.4) Total Bilirubin 1.4 mg/dL (0.2-1.0) Aspartate Amino Transf (AST/SGOT) 16 U/L (15-37) Alanine Aminotransferase (ALT/SGPT) < 6 U/L (14-59) Alkaline Phosphatase 74 U/L (46-116) Total Protein 5.8 g/dL (6.4-8.2) Albumin 2.8 g/dL (3.4-5.0) Albumin/Globulin Ratio 0.9 (1.0-1.7) Assessment and Plan Assessmemt and Plan Problems Medical Problems: (1) RASHEED (acute kidney injury) Status: Acute (2) Generalized weakness Status: Acute (3) Hypernatremia Status: Acute (4) Unable to care for self Status: Acute (5) UTI (urinary tract infection) Status: Acute Comment Review of Relevant I have reviewed the following items dhiraj (where applicable) has been applied. Medications: Current Medications Medications (Trade) Dose Ordered Sig/Yoanna Route PRN Reason Start Time Stop Time Status Last Admin Dose Admin Ceftriaxone Sodium (Rocephin) 1 gm Q24H IVP 07/21/21 18:00 07/21/21 18:03 Lactobacillus Rhamnosus (Culturelle) 1 cap BID PO 07/21/21 21:00 07/22/21 09:20 Justifications for Admission Other Justification DARRIN BONE MD Jul 22, 2021 10:08
--- NOTE | 2021-07-22 10:10 | RAD ---
EXAM: Abdomen and pelvis CT without intravenous contrast. HISTORY: Hydronephrosis. TECHNIQUE: Computed tomographic images of the abdomen and pelvis were obtained without contrast. Mult iplanar reformatting was performed. *One or more of the following individualized dose reduction techniques were utilized for this examina tion: 1. Automated exposure control. 2. Adjustment of the mA and/or kV according to patient size. 3. Use of iterative reconstruction technique. COMPARISON: Sonogram dated 07/20/2021. FINDINGS: The exam is extremely limited due to upper extremity positioning and body habitus. Evaluati on of the lower thorax demonstrates bilateral posterior dependent atelectasis and pleural parenchymal scarring. There is no infiltrate or pleural effusion. There is a granuloma within the liver. No susp icious hepatic lesion is seen on this noncontrast exam. The gallbladder is unremarkable. There is a p rominent pancreatic duct. No focal pancreatic lesion is seen on this noncontrast exam. The spleen is normal in size. The adrenal glands are unremarkable. There is moderate left hydronephrosis. There are multiple left renal stones, the largest of which tao sures 12 mm. There are ill-defined hypodense lesions along the lateral and anterior left kidney which may be cystic. Right renal stone or hydronephrosis is seen. The bladder is unremarkable. There are m ultiple pelvic phleboliths. There are large calcifications within the pelvis likely due to calcified uterine fibroids, largest which measures 2.0 cm. There is a 3.8 cm solid lesion within the left adnex a which may be a pedunculated uterine fibroid or ovarian in etiology. There is a large amount of stool. There is no evidence of bowel obstruction. The aorta is normal in c aliber. There is essentially no mesenteric fat. This limits evaluation of the abdominal and pelvic vi sceral and vascular structures. There is degenerative change throughout the spine, primarily at L1-L2 and L5-S1. There is lumbar scoliosis and multilevel listhesis. There is no acute osseous finding. IMPRESSION: 1. Extremely limited exam due to upper extremity positioning, the absence of intravenous contrast and patient body habitus. 2. Moderate left hydronephrosis and multiple large left renal stones. The location of the stones is d ifficult to confirm given the contour of the left kidney. There are hypodense collections along the l ateral anterior left kidney which may be due to cysts. These are not clearly seen sonographically. Po stcontrast imaging may be useful if this concern for an infectious etiology. 3. Suspected large calcified uterine fibroids. There is a 3.8 cm solid lesion within the left adnexa which may be due to a pedunculated uterine fibroid or ovarian etiology. Correlate with pelvic sonogra phy. 4. Large amount of colonic stool. Electronically signed by: Rand Cornejo MD (07/22/2021 10:07 AM) [id number]
[2021-07-22] MEDS: IV DEXTROSE 5 %-0.45 % NACL 1,000 ML IV SCH ×2 (12:23→21:23)
--- NOTE | 2021-07-22 15:17 | PDOC2 ---
UROLOGY CONSULT DOS: DATE: 07/22/21 TIME: 15:10 Reason for Consult: left hydronephrosis, UTI 71F admitted to the hospital for acute kidney injury, UTI, left-sided hydronephrosis. Patient is a very poor historian as she has altered mentation. She is alert to person but not place or time. Urology was consulted as renal ultrasound showed severe left-sided hydronephrosis. Patient denies having any flank pain. She does report some urinary frequency and leakage at baseline. No history of interventions or surgeries that she is aware of. Again, patient is a very poor historian. Urine culture is positive for Staphylococcus simulans. Creatinine initially 1.4 but has improved to 0.8. Nephrology is fol lowing. CT scan was completed this morning. It showed bilateral nonobstructing renal stones and probable cysts. Also concerning lesion in the adnexa concerning for cancer. She denies any current pain, resting watching TV and drinking coffee. ROS Unable to obtain due to altered mentation Current Medications Current Medications Sodium Chloride 1,000 ml @ 1,000 mls/hr 1X ONCE IV Last administered on 07/20/21at 16:22; Start 07/20/21 at 15:45; Stop 07/20/21 at 16:44; Status DC Ceftriaxone Sodium (Rocephin) 1 gm 1X ONCE IVP Last administered on 07/20/21at 16:52; Start 07/20/21 at 16:45; Stop 07/20/21 at 16:46; Status DC Rivastigmine Tartrate (Exelon) 3 mg BIDWMEALS PO Last administered on 07/22/21at 09:20; Start 07/20/21 at 17:00 Carbidopa/Levodopa (Sinemet 25/100) 1 tab [id number] PO Last administered on 07/20/21at 17:51; Start 07/20/21 at 18:00; Stop 07/20/21 at 19:35; Status DC Ringer's Solution 920 ml @ 920 mls/hr 1X ONCE IV Last administered on 07/20/21at 17:55; Start 07/20/21 at 17:00; Stop 07/20/21 at 17:59; Status DC Acetaminophen (Tylenol) 650 mg PRN Q6HRS PRN PO MILD PAIN / TEMP > 100.3'F; Start 07/20/21 at 18:00 Ondansetron HCl (Zofran) 4 mg PRN Q4HRS PRN IVP NAUSEA/VOMITING; Start 07/20/21 at 18:00 Hydralazine HCl (Apresoline Inj) 10 mg PRN Q4HRS PRN IVP ELEVATED BP, SEE COMMENTS; Start 07/20/21 at 18:00 Sodium Chloride 1,000 ml @ 75 mls/hr [id number] IV Last administered on 07/21/21at 22:40; Start 07/20/21 at 20:00; Stop 07/22/21 at 09:36; Status DC Ceftriaxone Sodium (Rocephin) 1 gm Q24H IVP Last administered on 07/21/21at 18:03; Start 07/21/21 at 18:00 Carbidopa/Levodopa (Sinemet 25/100) 1.5 tab QID PO Last administered on 07/22/21at 12:25; Start 07/20/21 at 21:00 Multivitamins (Thera M Plus) 1 tab DAILY PO Last administered on 07/22/21at 09:20; Start 07/21/21 at 09:00 Vitamin D (Vitamin D3) 1,000 unit BID PO Last administered on 07/22/21at 09:20; Start 07/20/21 at 21:00 Non-Formulary Medication (Rivastigmine Tartrate (Rivastigmine)) 3 mg BID PO ; Start 07/20/21 at 21:00; Status UNV Lactobacillus Rhamnosus (Culturelle) 1 cap BID PO Last administered on 07/22/21at 09:20; Start 07/21/21 at 21:00 Dextrose/Sodium Chloride 1,000 ml @ 75 mls/hr [id number] IV Last administered on 07/22/21at 12:23; Start 07/22/21 at 09:45 Active Scripts Active Reported One-Daily Multi-Vitamin (Multivitamin) 1 Each Tablet 1 Tab PO DAILY 30 Days Rivastigmine (Rivastigmine Tartrate) 3 Mg Capsule 3 Mg PO BID Vitamin D3 Complete Caplet (Mv-Mn/Iron/Fa/Herbal Cmplx#190) 1 Each Tablet 1 Each PO BID Carbidopa-Levodopa 25-100 Tab (Carbidopa/Levodopa) 1 Each Tablet 1.5 Tab PO QID 30 Days Allergies: Coded Allergies: No Known Drug Allergies (Unverified , 07/20/21) Physical Examination GENERAL: awake, confused, chronically ill-appearing SKIN: warm, dry RESPIRATORY: Aerating well, symmetrical expansion GI: Soft, nontender, no guarding, no rebound : Normal anatomy, no lesions, no CVA tenderness MUSCULOSKELETAL: Moves all extremities, no edema NEURO: No gross abnormalities PSYCHIATRIC: Confused, pleasant VITALS Vital Signs Date Time Temp Pulse Resp B/P (MAP) Pulse Ox O2 Delivery O2 Flow Rate FiO2 07/22/21 11:00 97.8 53 18 147/77 (100) 92 Room Air 97.8 Labs Laboratory Tests Test 07/20/21 15:40 07/20/21 16:05 07/20/21 16:23 07/21/21 04:00 Urine Collection Type Unknown Urine Color Maia Urine Clarity Cloudy Urine pH 5.0 (<5.0-8.0) Urine Specific [place] 1.025 (1.000-1.030) Urine Protein 30 mg/dL (NEG-TRACE) Urine Glucose (UA) Negative mg/dL (NEG) Urine Ketones (Stick) Trace mg/dL (NEG) Urine Blood Trace (NEG) Urine Nitrite Negative (NEG) Urine Bilirubin Moderate (NEG) Urine Urobilinogen Dipstick 1.0 mg/dL (0.2 mg/dL) Urine Leukocyte Esterase Moderate (NEG) Urine RBC Occ /HPF (0-2) Urine WBC >40 /HPF (0-4) Urine Squamous Epithelial Cells Many /LPF Urine Bacteria Moderate /HPF (0-FEW) Urine Mucus Marked /LPF White Blood Count 6.5 x10^3/uL (4.0-11.0) 7.0 x10^3/uL (4.0-11.0) Red Blood Count 5.05 x10^6/uL (3.50-5.40) 3.91 x10^6/uL (3.50-5.40) Hemoglobin 16.2 g/dL (12.0-15.5) 12.8 g/dL (12.0-15.5) Hematocrit 49.6 % (36.0-47.0) 38.6 % (36.0-47.0) Mean Corpuscular Volume 98 fL (79-100) 99 fL (79-100) Mean Corpuscular Hemoglobin 32 pg (25-35) 33 pg (25-35) Mean Corpuscular Hemoglobin Concent 33 g/dL (31-37) 33 g/dL (31-37) Red Cell Distribution Width 12.4 % (11.5-14.5) 12.2 % (11.5-14.5) Platelet Count 159 x10^3/uL (140-400) 118 x10^3/uL (140-400) Neutrophils (%) (Auto) 83 % (31-73) 76 % (31-73) Lymphocytes (%) (Auto) 11 % (24-48) 16 % (24-48) Monocytes (%) (Auto) 6 % (0-9) 7 % (0-9) Eosinophils (%) (Auto) 0 % (0-3) 1 % (0-3) Basophils (%) (Auto) 1 % (0-3) 1 % (0-3) Neutrophils # (Auto) 5.3 x10^3/uL (1.8-7.7) 5.3 x10^3/uL (1.8-7.7) Lymphocytes # (Auto) 0.7 x10^3/uL (1.0-4.8) 1.1 x10^3/uL (1.0-4.8) Monocytes # (Auto) 0.4 x10^3/uL (0.0-1.1) 0.5 x10^3/uL (0.0-1.1) Eosinophils # (Auto) 0.0 x10^3/uL (0.0-0.7) 0.1 x10^3/uL (0.0-0.7) Basophils # (Auto) 0.0 x10^3/uL (0.0-0.2) 0.1 x10^3/uL (0.0-0.2) Sodium Level 154 mmol/L (136-145) 155 mmol/L (136-145) Potassium Level 4.2 mmol/L (3.5-5.1) 4.1 mmol/L (3.5-5.1) Chloride Level 109 mmol/L (98-107) 117 mmol/L (98-107) Carbon Dioxide Level 24 mmol/L (21-32) 28 mmol/L (21-32) Anion Gap 21 (6-14) 10 (6-14) Blood Urea Nitrogen 52 mg/dL (7-20) 41 mg/dL (7-20) Creatinine 1.4 mg/dL (0.6-1.0) 1.0 mg/dL (0.6-1.0) Estimated GFR (Cockcroft-Gault) 44.7 65.9 BUN/Creatinine Ratio 37 (6-20) 41 (6-20) Glucose Level 103 mg/dL (70-99) 90 mg/dL (70-99) Lactic Acid Level 2.7 mmol/L (0.4-2.0) 1.3 mmol/L (0.4-2.0) Calcium Level 11.1 mg/dL (8.5-10.1) 9.5 mg/dL (8.5-10.1) Phosphorus Level 4.2 mg/dL (2.6-4.7) Magnesium Level 2.9 mg/dL (1.8-2.4) Total Bilirubin 2.2 mg/dL (0.2-1.0) 1.9 mg/dL (0.2-1.0) Aspartate Amino Transf (AST/SGOT) 19 U/L (15-37) 23 U/L (15-37) Alanine Aminotransferase (ALT/SGPT) 19 U/L (14-59) 6 U/L (14-59) Alkaline Phosphatase 112 U/L (46-116) 85 U/L (46-116) Creatine Kinase 249 U/L (26-192) Troponin I High Sensitivity 14 ng/L (4-50) OX-Qme-Q-Type Natriuretic Peptide 130 pg/mL (0-124) Total Protein 9.3 g/dL (6.4-8.2) 6.6 g/dL (6.4-8.2) Albumin 4.5 g/dL (3.4-5.0) 3.2 g/dL (3.4-5.0) Albumin/Globulin Ratio 0.9 (1.0-1.7) 0.9 (1.0-1.7) 25-Hydroxy Vitamin D Total 32.1 ng/mL (30-100) Coronavirus (COVID-19)(PCR) Not detected (NOT DETECTD) Influenza Type A Antigen Negative (NEGATIVE) Influenza Type B Antigen Negative (NEGATIVE) SARS-CoV-2 Antigen (Rapid) Negative (NEGATIVE) Test 07/22/21 06:00 White Blood Count 5.1 x10^3/uL (4.0-11.0) Red Blood Count 3.45 x10^6/uL (3.50-5.40) Hemoglobin 11.3 g/dL (12.0-15.5) Hematocrit 34.0 % (36.0-47.0) Mean Corpuscular Volume 98 fL (79-100) Mean Corpuscular Hemoglobin 33 pg (25-35) Mean Corpuscular Hemoglobin Concent 33 g/dL (31-37) Red Cell Distribution Width 11.8 % (11.5-14.5) Platelet Count 90 x10^3/uL (140-400) Neutrophils (%) (Auto) 71 % (31-73) Lymphocytes (%) (Auto) 18 % (24-48) Monocytes (%) (Auto) 8 % (0-9) Eosinophils (%) (Auto) 2 % (0-3) Basophils (%) (Auto) 1 % (0-3) Neutrophils # (Auto) 3.6 x10^3/uL (1.8-7.7) Lymphocytes # (Auto) 0.9 x10^3/uL (1.0-4.8) Monocytes # (Auto) 0.4 x10^3/uL (0.0-1.1) Eosinophils # (Auto) 0.1 x10^3/uL (0.0-0.7) Basophils # (Auto) 0.0 x10^3/uL (0.0-0.2) Sodium Level 154 mmol/L (136-145) Potassium Level 3.6 mmol/L (3.5-5.1) Chloride Level 117 mmol/L (98-107) Carbon Dioxide Level 27 mmol/L (21-32) Anion Gap 10 (6-14) Blood Urea Nitrogen 26 mg/dL (7-20) Creatinine 0.8 mg/dL (0.6-1.0) Estimated GFR (Cockcroft-Gault) 85.3 BUN/Creatinine Ratio 33 (6-20) Glucose Level 93 mg/dL (70-99) Calcium Level 8.7 mg/dL (8.5-10.1) Magnesium Level 2.0 mg/dL (1.8-2.4) Total Bilirubin 1.4 mg/dL (0.2-1.0) Aspartate Amino Transf (AST/SGOT) 16 U/L (15-37) Alanine Aminotransferase (ALT/SGPT) < 6 U/L (14-59) Alkaline Phosphatase 74 U/L (46-116) Total Protein 5.8 g/dL (6.4-8.2) Albumin 2.8 g/dL (3.4-5.0) Albumin/Globulin Ratio 0.9 (1.0-1.7) Laboratory Tests Test 07/22/21 06:00 White Blood Count 5.1 x10^3/uL (4.0-11.0) Red Blood Count 3.45 x10^6/uL (3.50-5.40) Hemoglobin 11.3 g/dL (12.0-15.5) Hematocrit 34.0 % (36.0-47.0) Mean Corpuscular Volume 98 fL (79-100) Mean Corpuscular Hemoglobin 33 pg (25-35) Mean Corpuscular Hemoglobin Concent 33 g/dL (31-37) Red Cell Distribution Width 11.8 % (11.5-14.5) Platelet Count 90 x10^3/uL (140-400) Neutrophils (%) (Auto) 71 % (31-73) Lymphocytes (%) (Auto) 18 % (24-48) Monocytes (%) (Auto) 8 % (0-9) Eosinophils (%) (Auto) 2 % (0-3) Basophils (%) (Auto) 1 % (0-3) Neutrophils # (Auto) 3.6 x10^3/uL (1.8-7.7) Lymphocytes # (Auto) 0.9 x10^3/uL (1.0-4.8) Monocytes # (Auto) 0.4 x10^3/uL (0.0-1.1) Eosinophils # (Auto) 0.1 x10^3/uL (0.0-0.7) Basophils # (Auto) 0.0 x10^3/uL (0.0-0.2) Sodium Level 154 mmol/L (136-145) Potassium Level 3.6 mmol/L (3.5-5.1) Chloride Level 117 mmol/L (98-107) Carbon Dioxide Level 27 mmol/L (21-32) Anion Gap 10 (6-14) Blood Urea Nitrogen 26 mg/dL (7-20) Creatinine 0.8 mg/dL (0.6-1.0) Estimated GFR (Cockcroft-Gault) 85.3 BUN/Creatinine Ratio 33 (6-20) Glucose Level 93 mg/dL (70-99) Calcium Level 8.7 mg/dL (8.5-10.1) Magnesium Level 2.0 mg/dL (1.8-2.4) Total Bilirubin 1.4 mg/dL (0.2-1.0) Aspartate Amino Transf (AST/SGOT) 16 U/L (15-37) Alanine Aminotransferase (ALT/SGPT) < 6 U/L (14-59) Alkaline Phosphatase 74 U/L (46-116) Total Protein 5.8 g/dL (6.4-8.2) Albumin 2.8 g/dL (3.4-5.0) Albumin/Globulin Ratio 0.9 (1.0-1.7) Assessment/Plan --Left-sided hydronephrosis, UTI, RASHEED Renal ultrasound showing severe left-sided hydronephrosis. CT scan completing this morning does not show any obstructing stones. She does have renal stones that are nonobstructing bilaterally as well as a fluid collection around the left kidney concerning for cysts - wasnt seen on [facility] - no leukocytosis, low suspicion for abscess. Hydronephrosis could be due to pyelonephritis although not actively having any flank pain. Urinalysis is positive for Staphylococcus simulans. We will complete 14-day course of culture specific antibiotics. Creatinine is down to baseline at 0.8. RASHEED appears to have resolved. No emergent surgical intervention at this time. We will recheck hydronephrosis in 2 weeks with a renal ultrasound to be done outpatient, especially since creatinine is improving. Please call with further urology concerns. Discussed with Dr. Simeon. ROSA MURPHY Jul 22, 2021 15:17
--- NOTE | 2021-07-22 17:08 | PDOC2 ---
CONSULT Date of Consult Date of Consult DATE: 07/22/21 TIME: 16:50 Reason for Consult Reason for Consult: Parkinson's disease and encephalopathy Referring Physician Referring Physician: Dr. Madi Arellano History of Present Illness Reason for Visit: Becky Hammonds is a pleasant 71-year-old woman with longstanding Parkinson's disease. She reports that she had been followed by Dr. Lopez at [facility]. She reports that she has declined. She started noting that she was having to go to the bathroom very frequently. She then became weaker and could not get out of her bed. She is maintained on carbidopa/levodopa. She states she is on 1-1/2 tablets for 4 dosages a day but then states she only takes 4-1/2 tablets total per day. It is not clear how much she is on but it is clear she has not been taking it lately. The family found a bottle in her purse that was unopened. According to nursing staff as well as a family member in the room, they have been concerned that she has had declining cognition. I am not able to get a timeframe for this. This current change is quite acute. Her sister comes over and brings her food. She lives by herself. In the emergency room she was found to be dehydrated with a BUN of 52 and elevated sodium. The urinalysis was also suspicious for infection. The patient is a poor historian. Past Medical History CENTRAL NERVOUS SYSTEM: Dementia, Other (Parkinson's disease) Musculoskeletal: Osteoarthritis Family History Family History: Diabetes Social History Lives: Alone Current Problem List Problem List Problems Medical Problems: (1) RASHEED (acute kidney injury) Status: Acute (2) Generalized weakness Status: Acute (3) Hypernatremia Status: Acute (4) Unable to care for self Status: Acute (5) UTI (urinary tract infection) Status: Acute Current Medications Current Medications Current Medications Sodium Chloride 1,000 ml @ 1,000 mls/hr 1X ONCE IV Last administered on 07/20/21at 16:22; Start 07/20/21 at 15:45; Stop 07/20/21 at 16:44; Status DC Ceftriaxone Sodium (Rocephin) 1 gm 1X ONCE IVP Last administered on 07/20/21at 16:52; Start 07/20/21 at 16:45; Stop 07/20/21 at 16:46; Status DC Rivastigmine Tartrate (Exelon) 3 mg BIDWMEALS PO Last administered on 07/22/21at 09:20; Start 07/20/21 at 17:00 Carbidopa/Levodopa (Sinemet 25/100) 1 tab [id number] PO Last administered on at 17:51; Start 07/20/21 at 18:00; Stop 07/20/21 at 19:35; Status DC Ringer's Solution 920 ml @ 920 mls/hr 1X ONCE IV Last administered on 07/20/21at 17:55; Start 07/20/21 at 17:00; Stop 07/20/21 at 17:59; Status DC Acetaminophen (Tylenol) 650 mg PRN Q6HRS PRN PO MILD PAIN / TEMP > 100.3'F; Start 07/20/21 at 18:00 Ondansetron HCl (Zofran) 4 mg PRN Q4HRS PRN IVP NAUSEA/VOMITING; Start 07/20/21 at 18:00 Hydralazine HCl (Apresoline Inj) 10 mg PRN Q4HRS PRN IVP ELEVATED BP, SEE COMMENTS; Start 07/20/21 at 18:00 Sodium Chloride 1,000 ml @ 75 mls/hr [id number] IV Last administered on 07/21/21at 22:40; Start 07/20/21 at 20:00; Stop 07/22/21 at 09:36; Status DC Ceftriaxone Sodium (Rocephin) 1 gm Q24H IVP Last administered on 07/21/21at 18:03; Start 07/21/21 at 18:00 Carbidopa/Levodopa (Sinemet 25/100) 1.5 tab QID PO Last administered on 07/22/21at 12:25; Start 07/20/21 at 21:00 Multivitamins (Thera M Plus) 1 tab DAILY PO Last administered on 07/22/21at 09:20; Start 07/21/21 at 09:00 Vitamin D (Vitamin D3) 1,000 unit BID PO Last administered on 07/22/21at 09:20; Start 07/20/21 at 21:00 Non-Formulary Medication (Rivastigmine Tartrate (Rivastigmine)) 3 mg BID PO ; Start 07/20/21 at 21:00; Status UNV Lactobacillus Rhamnosus (Culturelle) 1 cap BID PO Last administered on 07/22/21at 09:20; Start 07/21/21 at 21:00 Dextrose/Sodium Chloride 1,000 ml @ 75 mls/hr [id number] IV Last administered on 07/22/21at 12:23; Start 07/22/21 at 09:45 Active Scripts Active Reported One-Daily Multi-Vitamin (Multivitamin) 1 Each Tablet 1 Tab PO DAILY 30 Days Rivastigmine (Rivastigmine Tartrate) 3 Mg Capsule 3 Mg PO BID Vitamin D3 Complete Caplet (Mv-Mn/Iron/Fa/Herbal Cmplx#190) 1 Each Tablet 1 Each PO BID Carbidopa-Levodopa 25-100 Tab (Carbidopa/Levodopa) 1 Each Tablet 1.5 Tab PO QID 30 Days Allergies Allergies: Coded Allergies: No Known Drug Allergies (Unverified , 07/20/21) ROS Review of System Constitutional: She has had generalized weakness and been unable to get out of bed. Eyes: Negative HENT: Negative Respiratory: Negative Cardiovascular: Negative GI: Negative : She has had frequent urination over the last week. Musculoskeletal: She has diffuse arthritic pain. Neurologic: Negative Hematologic: Negative Lymphatic: Negative Psychiatric: Negative Physical Exam Physical Exam She was in a reclining chair. She was awake but not completely alert. Attention and concentration was impaired. She had psychomotor slowing with a very delayed response time. She was oriented to name of hospital, month and year. She had some difficulty following commands. She had difficulty grasping the concepts. Examination of the cranial nerves revealed visual sanchez were full to confrontation. She had difficulty following my finger. Upgaze was impaired but she was able to look down and laterally. Pupils were 3 mm. She was not able to cooperate for funduscopic examination because she strongly closed her eyes to light stimulation. Facial sensation was intact. Muscles of mastication and facial expression were symmetric. She did have a masked face and really could not smile. Hearing was intact to finger rub. The palate arch symmetrically and the tongue was midline with full motion. Shoulder shrug appeared symmetric. Muscle bulk was symmetric. Tone was increased on the left side more than the right. At times a resting tremor was noted in the right arm and leg. Power was diminished throughout but much more so in the legs. Power in the arms was 4/5 but power in the legs was only trace. There were no focal findings with severe power loss but rather generalized weakness. Reflexes were 2/4 in the upper extremities but absent at knees and ankles. Toes were not up or downgoing. Coordination testing was difficult as her attention was waning. Fine motor was poorly performed. She generally had bradykinesia. Sensory examination appeared intact to sharp, graphesthesia to the #1 only, proprioception, vibration and cold thermal. There was no extinction to double simultaneous stimulation. Gait was not testable. Auscultation of the carotid arteries did not reveal a bruit. Heart rhythm was regular without a murmur. Peripheral pulses were symmetric at the wrist and in the feet. Vitals VITALS Vital Signs Date Time Temp Pulse Resp B/P (MAP) Pulse Ox O2 Delivery O2 Flow Rate FiO2 07/22/21 15:00 97.6 75 18 107/59 (75) 98 Room Air 97.6 Labs Labs Laboratory Tests Test 07/21/21 04:00 07/22/21 06:00 White Blood Count 7.0 x10^3/uL (4.0-11.0) 5.1 x10^3/uL (4.0-11.0) Red Blood Count 3.91 x10^6/uL (3.50-5.40) 3.45 x10^6/uL (3.50-5.40) Hemoglobin 12.8 g/dL (12.0-15.5) 11.3 g/dL (12.0-15.5) Hematocrit 38.6 % (36.0-47.0) 34.0 % (36.0-47.0) Mean Corpuscular Volume 99 fL (79-100) 98 fL (79-100) Mean Corpuscular Hemoglobin 33 pg (25-35) 33 pg (25-35) Mean Corpuscular Hemoglobin Concent 33 g/dL (31-37) 33 g/dL (31-37) Red Cell Distribution Width 12.2 % (11.5-14.5) 11.8 % (11.5-14.5) Platelet Count 118 x10^3/uL (140-400) 90 x10^3/uL (140-400) Neutrophils (%) (Auto) 76 % (31-73) 71 % (31-73) Lymphocytes (%) (Auto) 16 % (24-48) 18 % (24-48) Monocytes (%) (Auto) 7 % (0-9) 8 % (0-9) Eosinophils (%) (Auto) 1 % (0-3) 2 % (0-3) Basophils (%) (Auto) 1 % (0-3) 1 % (0-3) Neutrophils # (Auto) 5.3 x10^3/uL (1.8-7.7) 3.6 x10^3/uL (1.8-7.7) Lymphocytes # (Auto) 1.1 x10^3/uL (1.0-4.8) 0.9 x10^3/uL (1.0-4.8) Monocytes # (Auto) 0.5 x10^3/uL (0.0-1.1) 0.4 x10^3/uL (0.0-1.1) Eosinophils # (Auto) 0.1 x10^3/uL (0.0-0.7) 0.1 x10^3/uL (0.0-0.7) Basophils # (Auto) 0.1 x10^3/uL (0.0-0.2) 0.0 x10^3/uL (0.0-0.2) Sodium Level 155 mmol/L (136-145) 154 mmol/L (136-145) Potassium Level 4.1 mmol/L (3.5-5.1) 3.6 mmol/L (3.5-5.1) Chloride Level 117 mmol/L (98-107) 117 mmol/L (98-107) Carbon Dioxide Level 28 mmol/L (21-32) 27 mmol/L (21-32) Anion Gap 10 (6-14) 10 (6-14) Blood Urea Nitrogen 41 mg/dL (7-20) 26 mg/dL (7-20) Creatinine 1.0 mg/dL (0.6-1.0) 0.8 mg/dL (0.6-1.0) Estimated GFR (Cockcroft-Gault) 65.9 85.3 BUN/Creatinine Ratio 41 (6-20) 33 (6-20) Glucose Level 90 mg/dL (70-99) 93 mg/dL (70-99) Lactic Acid Level 1.3 mmol/L (0.4-2.0) Calcium Level 9.5 mg/dL (8.5-10.1) 8.7 mg/dL (8.5-10.1) Total Bilirubin 1.9 mg/dL (0.2-1.0) 1.4 mg/dL (0.2-1.0) Aspartate Amino Transf (AST/SGOT) 23 U/L (15-37) 16 U/L (15-37) Alanine Aminotransferase (ALT/SGPT) 6 U/L (14-59) < 6 U/L (14-59) Alkaline Phosphatase 85 U/L (46-116) 74 U/L (46-116) Total Protein 6.6 g/dL (6.4-8.2) 5.8 g/dL (6.4-8.2) Albumin 3.2 g/dL (3.4-5.0) 2.8 g/dL (3.4-5.0) Albumin/Globulin Ratio 0.9 (1.0-1.7) 0.9 (1.0-1.7) Magnesium Level 2.0 mg/dL (1.8-2.4) Laboratory Tests Test 07/22/21 06:00 White Blood Count 5.1 x10^3/uL (4.0-11.0) Red Blood Count 3.45 x10^6/uL (3.50-5.40) Hemoglobin 11.3 g/dL (12.0-15.5) Hematocrit 34.0 % (36.0-47.0) Mean Corpuscular Volume 98 fL (79-100) Mean Corpuscular Hemoglobin 33 pg (25-35) Mean Corpuscular Hemoglobin Concent 33 g/dL (31-37) Red Cell Distribution Width 11.8 % (11.5-14.5) Platelet Count 90 x10^3/uL (140-400) Neutrophils (%) (Auto) 71 % (31-73) Lymphocytes (%) (Auto) 18 % (24-48) Monocytes (%) (Auto) 8 % (0-9) Eosinophils (%) (Auto) 2 % (0-3) Basophils (%) (Auto) 1 % (0-3) Neutrophils # (Auto) 3.6 x10^3/uL (1.8-7.7) Lymphocytes # (Auto) 0.9 x10^3/uL (1.0-4.8) Monocytes # (Auto) 0.4 x10^3/uL (0.0-1.1) Eosinophils # (Auto) 0.1 x10^3/uL (0.0-0.7) Basophils # (Auto) 0.0 x10^3/uL (0.0-0.2) Sodium Level 154 mmol/L (136-145) Potassium Level 3.6 mmol/L (3.5-5.1) Chloride Level 117 mmol/L (98-107) Carbon Dioxide Level 27 mmol/L (21-32) Anion Gap 10 (6-14) Blood Urea Nitrogen 26 mg/dL (7-20) Creatinine 0.8 mg/dL (0.6-1.0) Estimated GFR (Cockcroft-Gault) 85.3 BUN/Creatinine Ratio 33 (6-20) Glucose Level 93 mg/dL (70-99) Calcium Level 8.7 mg/dL (8.5-10.1) Magnesium Level 2.0 mg/dL (1.8-2.4) Total Bilirubin 1.4 mg/dL (0.2-1.0) Aspartate Amino Transf (AST/SGOT) 16 U/L (15-37) Alanine Aminotransferase (ALT/SGPT) < 6 U/L (14-59) Alkaline Phosphatase 74 U/L (46-116) Total Protein 5.8 g/dL (6.4-8.2) Albumin 2.8 g/dL (3.4-5.0) Albumin/Globulin Ratio 0.9 (1.0-1.7) Images Images Chest x-ray July 20, 2021 COMPARISON: None. FINDINGS: A frontal view of the chest is obtained. There is no infiltrate, pleural effusion or pneumothorax. The heart is normal in size. There is hyperinflation likely due to emphysema. IMPRESSION: No acute pulmonary finding. CT head without contrast July 20, 2021 Findings: No mass-effect, midline shift, extra-axial fluid collection, hemorrhage, or obvious acute infarction is identified. Basilar cisterns are patent. The ventricles and sulci are prominent, consistent with generalized cerebral atrophy. There is mild periventricular white matter hypoattenuation. This is a nonspecific finding but is commonly due to chronic small vessel ischemic disease. Bone windows demonstrate no acute calvarial abnormality. The visualized paranasal sinuses are clear. Mastoid air cells are well aerated. IMPRESSION: 1. No acute intracranial abnormality. 2. Generalized cerebral atrophy and mild periventricular white matter changes probably due to chronic small vessel ischemic disease. Renal complete bilateral ultrasound July 20, 2021 COMPARISON: 06/08/2019. FINDINGS: The kidneys are normal in size. There is moderate to severe left hydronephrosis. No solid or cystic renal lesion is seen. The bladder is unremarkable. The prevoid bladder volume is 24 cc. The ureteral jets are both seen. There is incidental cholelithiasis. IMPRESSION: 1. Moderate to severe left hydronephrosis. 2. Inc[address]. CT abdomen pelvis without contrast July 22, 2021 COMPARISON: Sonogram dated 07/20/2021. FINDINGS: The exam is extremely limited due to upper extremity positioning and body habitus. Evaluation of the lower thorax demonstrates bilateral posterior dependent atelectasis and pleural parenchymal scarring. There is no infiltrate or pleural effusion. There is a granuloma within the liver. No suspicious hepatic lesion is seen on this noncontrast exam. The gallbladder is unremarkable. There is a prominent pancreatic duct. No focal pancreatic lesion is seen on this noncontrast exam. The spleen is normal in size. The adrenal glands are unremarkable. There is moderate left hydronephrosis. There are multiple left renal stones, the largest of which measures 12 mm. There are ill-defined hypodense lesions along the lateral and anterior left kidney which may be cystic. Right renal stone or hydronephrosis is seen. The bladder is unremarkable. There are multiple pelvic phleboliths. There are large calcifications within the pelvis likely due to calcified uterine fibroids, largest which measures 2.0 cm. There is a 3.8 cm solid lesion within the left adnexa which may be a pedunculated uterine fibroid or ovarian in etiology. There is a large amount of stool. There is no evidence of bowel obstruction. The aorta is normal in caliber. There is essentially no mesenteric fat. This limits evaluation of the abdominal and pelvic visceral and vascular structures. There is degenerative change throughout the spine, primarily at L1-L2 and L5-S1. There is lumbar scoliosis and multilevel listhesis. There is no acute osseous finding. IMPRESSION: 1. Extremely limited exam due to upper extremity positioning, the absence of intravenous contrast and patient body habitus. 2. Moderate left hydronephrosis and multiple large left renal stones. The location of the stones is difficult to confirm given the contour of the left k idney. There are hypodense collections along the lateral anterior left kidney which may be due to cysts. These are not clearly seen sonographically. Postcontrast imaging may be useful if this concern for an infectious etiology. 3. Suspected large calcified uterine fibroids. There is a 3.8 cm solid lesion within the left adnexa which may be due to a pedunculated uterine fibroid or o varian etiology. Correlate with pelvic sonography. 4. Large amount of colonic stool. Assessment/Plan Assessment/Plan Becky Hammonds is a 71-year-old woman with Parkinson's disease. She is a poor historian. The family member present at bedside did not have much health history. We need to know the regimen that she was taking for Parkinson's disease. I have asked her nurse to send a release to [facility] as she reports working with Dr. Urbina. It sounds as if she developed a urinary tract infection and was not taking her medicines because she could not get out of bed. This provoked an encephalopathic process. She has become generally weakened. This certainly may not represent her baseline state. We need to restart her usual medications, work on nutrition and hydration and ultimately send her to rehabilitation to see if she can gain back her strength and the encephalopathy can resolved. It is possible she may require an assisted living facility. I do not see anything focal that would suggest stroke. I am relieved that the CT scan of her head was also not revealing for stroke or hemorrhage. She is very weak in her legs and certainly would not be able to walk at the present time. She states she normally gets around with a walker. She is on medicine for dementia but she does not have insight into this diagnosis. I will be happy to reevaluate. ML ELLIOTT MD Jul 22, 2021 17:08
[2021-07-22] MEDS: cefTRIAXone IV Push 1 GM VIAL. IVP SCH (18:15)
[2021-07-23 03:28] VITALS: BP 121/70
[2021-07-23 06:24] LABS: BASO % 1 % (0-3); EOS # 0.1 x10^3/uL (0.0-0.7); EOS % 3 % (0-3); HEMATOCRIT 30.1 % (36.0-47.0); HEMOGLOBIN 9.9 g/dL (12.0-15.5); LYMPH # 0.9 x10^3/uL (1.0-4.8); LYMPH % 21 % (24-48); MEAN CORPUSCULAR HEMOGLOBIN 32 pg (25-35); MEAN CORPUSCULAR HGB CONC 33 g/dL (31-37); MEAN CORPUSCULAR VOLUME 98 fL (79-100); MONO # 0.4 x10^3/uL (0.0-1.1); MONO % 9 % (0-9); NEUT # 2.8 x10^3/uL (1.8-7.7); NEUT % 66 % (31-73); PLATELET COUNT 85 x10^3/uL (140-400); RED BLOOD COUNT 3.08 x10^6/uL (3.50-5.40); WHITE BLOOD COUNT 4.2 x10^3/uL (4.0-11.0)
[2021-07-23 06:52] LABS: ALBUMIN 2.3 g/dL (3.4-5.0); ALBUMIN/GLOBULIN RATIO 0.8 (1.0-1.7); CALCIUM 8.3 mg/dL (8.5-10.1); CREATININE 0.8 mg/dL (0.6-1.0); GFR 85.3; POTASSIUM 3.2 mmol/L (3.5-5.1); TOTAL BILIRUBIN 0.7 mg/dL (0.2-1.0); TOTAL PROTEIN 5.2 g/dL (6.4-8.2)
[2021-07-23 07:00] VITALS: BP 151/99
[2021-07-23] MEDS: CARBIDOPA/LEVODOPA 25/100MG TABLET PO SCH ×4 (08:42→21:21)
[2021-07-23] MEDS: RIVASTIGMINE 1.5 MG CAPSULE. PO SCH ×2 (08:43→17:10)
[2021-07-23] MEDS: LACTOBACILLUS RHAMNOSUS GG 1 CAPSULE. PO SCH ×2 (08:43→21:21)
[2021-07-23] MEDS: MULTIVITAMIN with MINERAL TABLET. PO SCH (08:43)
[2021-07-23] MEDS: CHOLECALCIFEROL (VITAMIN D3) 1,000 UNIT TABLET PO SCH ×2 (08:43→21:21)
--- NOTE | 2021-07-23 09:36 | PDOC ---
DATE OF SERVICE DATE: 07/23/21 TIME: 09:24 SUBJECTIVE ROS Resting comfortably, denies any complaints. Denies N/V. No SOB OBJECTIVE Vital Signs Vital Signs Date Time Temp Pulse Resp B/P (MAP) Pulse Ox O2 Delivery O2 Flow Rate FiO2 07/23/21 07:00 96.1 93 14 151/99 (116) 93 Room Air 96.1 I & 0 Intake and Output 07/23/21 07:00 Output Total 0 ml Balance 0 ml Output Urine Total 0 ml # Voids 2 PHYSICAL EXAM Physical Exam GENERAL : NAD HEENT:OM moist NECK: supple LUNGS: CTA, Non labored CARDIAC: Without S3 or rub. ABDOMEN: Soft, nontender.BS + EXTREMITIES: No edema, or Cyanosis NEURO Grossly normal PSYCH poor memory and difficulty following No Rico DIAGNOSIS/ASSESSMENT Assessment & Plan RASHEED - 2/2 Dehydration, resolved. Supportive care, maintain fluid balance, strict I/O (not recorded) , avoid nephrotoxins Dehydration secondary to reduced intravascular volume, likely related to immobility. Hypernatremia due to free water deficit, improving .Encourage water intake, switched on 07/22 to Hypotonic fluid . DC IVF if good PO intake including fluids . Defer to Primary Chronic kidney disease stage II. Anemia- Hgb trending down. Initial High Hgb could be sec to [place] . Defer to Primary to trend and Monitor Abnormal Renal US - reveals moderate to severe left hydronephrosis . No Urinary retention on US Recommend evaluation by Urology. COMMENT/RELEVANT DATA Meds Current Medications Medications (Trade) Dose Ordered Sig/Yoanna Start Time Stop Time Status Last Admin Dose Admin Acetaminophen (Tylenol) 650 mg PRN Q6HRS PRN 07/20/21 18:00 Carbidopa/Levodopa (Sinemet 25/100) 1.5 tab QID 07/20/21 21:00 07/23/21 08:42 1.5 TAB Ceftriaxone Sodium (Rocephin) 1 gm Q24H 07/21/21 18:00 07/22/21 18:15 1 GM Dextrose/Sodium Chloride 1,000 ml @ 75 mls/hr [id number] 07/22/21 09:45 07/22/21 21:23 75 MLS/HR Hydralazine HCl (Apresoline Inj) 10 mg PRN Q4HRS PRN 07/20/21 18:00 Lactobacillus Rhamnosus (Culturelle) 1 cap BID 07/21/21 21:00 07/23/21 08:43 1 CAP Multivitamins (Thera M Plus) 1 tab DAILY 07/21/21 09:00 07/23/21 08:43 1 TAB Non-Formulary Medication (Rivastigmine Tartrate (Rivastigmine)) 3 mg BID 07/20/21 21:00 UNV Ondansetron HCl (Zofran) 4 mg PRN Q4HRS PRN 07/20/21 18:00 Ringer's Solution 920 ml @ 920 mls/hr 1X ONCE 07/20/21 17:00 07/20/21 17:59 DC 07/20/21 17:55 920 MLS/HR Rivastigmine Tartrate (Exelon) 3 mg BIDWMEALS 07/20/21 17:00 07/23/21 08:43 3 MG Sodium Chloride 1,000 ml @ 75 mls/hr [id number] 07/20/21 20:00 07/22/21 09:36 DC 07/21/21 22:40 75 MLS/HR Vitamin D (Vitamin D3) 1,000 unit BID 07/20/21 21:00 07/23/21 08:43 1,000 UNIT Lab Laboratory Tests Test 07/23/21 06:06 White Blood Count 4.2 x10^3/uL (4.0-11.0) Red Blood Count 3.08 x10^6/uL (3.50-5.40) Hemoglobin 9.9 g/dL (12.0-15.5) Hematocrit 30.1 % (36.0-47.0) Mean Corpuscular Volume 98 fL (79-100) Mean Corpuscular Hemoglobin 32 pg (25-35) Mean Corpuscular Hemoglobin Concent 33 g/dL (31-37) Red Cell Distribution Width 12.0 % (11.5-14.5) Platelet Count 85 x10^3/uL (140-400) Neutrophils (%) (Auto) 66 % (31-73) Lymphocytes (%) (Auto) 21 % (24-48) Monocytes (%) (Auto) 9 % (0-9) Eosinophils (%) (Auto) 3 % (0-3) Basophils (%) (Auto) 1 % (0-3) Neutrophils # (Auto) 2.8 x10^3/uL (1.8-7.7) Lymphocytes # (Auto) 0.9 x10^3/uL (1.0-4.8) Monocytes # (Auto) 0.4 x10^3/uL (0.0-1.1) Eosinophils # (Auto) 0.1 x10^3/uL (0.0-0.7) Basophils # (Auto) 0.0 x10^3/uL (0.0-0.2) Sodium Level 148 mmol/L (136-145) Potassium Level 3.2 mmol/L (3.5-5.1) Chloride Level 113 mmol/L (98-107) Carbon Dioxide Level 27 mmol/L (21-32) Anion Gap 8 (6-14) Blood Urea Nitrogen 18 mg/dL (7-20) Creatinine 0.8 mg/dL (0.6-1.0) Estimated GFR (Cockcroft-Gault) 85.3 BUN/Creatinine Ratio 23 (6-20) Glucose Level 105 mg/dL (70-99) Calcium Level 8.3 mg/dL (8.5-10.1) Total Bilirubin 0.7 mg/dL (0.2-1.0) Aspartate Amino Transf (AST/SGOT) 18 U/L (15-37) Alanine Aminotransferase (ALT/SGPT) 7 U/L (14-59) Alkaline Phosphatase 75 U/L (46-116) Total Protein 5.2 g/dL (6.4-8.2) Albumin 2.3 g/dL (3.4-5.0) Albumin/Globulin Ratio 0.8 (1.0-1.7) Results All relevant outside records, renal labs, imaging studies, telemetry/EKG's were reviewed. Justicifation of Admission Dx: Justifications for Admission: Justification of Admission Dx: N/A AXEL NATARAJAN MD Jul 23, 2021 09:36
[2021-07-23] MEDS ORDERED: POTASSIUM CHLORIDE 20 MEQ TABLET.ER. PO ONE (09:45)
--- NOTE | 2021-07-23 10:26 | PDOC ---
[employer] PROGRESS NOTE Date of Service DOS: DATE: 07/23/21 TIME: 10:25 Chief Complaint Chief Complaint Hypernatremia RASHEED Left Hydronephrosis Parkinsonism Elevated bilirubin Lactic acidosis History of Present Illness History of Present Illness Ms. Hammonds is a 71-year-old female past medical history of Parkinson disease with signs of early dementia comes in via EMS to the ED for further evaluation. Family had called to check on her and was unable to get a hold of her for the last 2 days patient notes she not been eating and drinking and did not take any medication for at least 2 days lives by herself. Is pleasantly confused in the ED initial evaluation. Initial labs of Hb 16.2, NA 154, BUN 52, CR 1.4, calcium 11.1 bilirubin 2.2, CK 249, lactic acid 2.7 EKG sinus rhythm rate of 94 bpm normal axis intervals QTC [address] segment elevations or T WI. Renal sonogram reveals moderate to severe left hydronephrosis. Chest radiograph with no acute findings Due to confusion she underwent CT head which showed no acute intracranial ab normality. 07/21: Seen bedside weak not moving her upper extremities well. Nursing unable to obtain IV access. She knows she needs assistance for feeding and her sister only helps her at home which she lives alone. 07/22 Patient evaluated examined at bedside. Flat affect. Difficult to understand. Said she was feeling okay though. CT done this morning results pending. Urolog y consulted. PT OT recommending SNF placement. Otherwise continue current. Nephrology following as well. 07/23 Patient evaluated examined at bedside. Difficult to understand but did not have any complaints to me. Planning 2-week antibiotic course for urinary infection. Confirmed with bedside nurse patient has pretty adequate p.o. intake will stop fluids. Needs SNF placement. Can try to start working on this as she may be discharged ready in the next day or 2. Vitals/I&O Vitals/I&O: Vital Signs Date Time Temp Pulse Resp B/P (MAP) Pulse Ox O2 Delivery O2 Flow Rate FiO2 07/23/21 07:00 96.1 93 14 151/99 (116) 93 Room Air 96.1 I & O 07/22/21 07/22/21 07/23/21 15:00 23:00 07:00 Output Total 0 ml Balance 0 ml Physical Exam General: Alert, Cooperative, No acute distress Heart: Regular rate Lungs: Clear Abdomen: Normal bowel sounds, Soft Extremities: No edema, Normal pulses Skin: Other (Xerosis) Labs Labs: Laboratory Tests Test 07/23/21 06:06 White Blood Count 4.2 x10^3/uL (4.0-11.0) Red Blood Count 3.08 x10^6/uL (3.50-5.40) Hemoglobin 9.9 g/dL (12.0-15.5) Hematocrit 30.1 % (36.0-47.0) Mean Corpuscular Volume 98 fL (79-100) Mean Corpuscular Hemoglobin 32 pg (25-35) Mean Corpuscular Hemoglobin Concent 33 g/dL (31-37) Red Cell Distribution Width 12.0 % (11.5-14.5) Platelet Count 85 x10^3/uL (140-400) Neutrophils (%) (Auto) 66 % (31-73) Lymphocytes (%) (Auto) 21 % (24-48) Monocytes (%) (Auto) 9 % (0-9) Eosinophils (%) (Auto) 3 % (0-3) Basophils (%) (Auto) 1 % (0-3) Neutrophils # (Auto) 2.8 x10^3/uL (1.8-7.7) Lymphocytes # (Auto) 0.9 x10^3/uL (1.0-4.8) Monocytes # (Auto) 0.4 x10^3/uL (0.0-1.1) Eosinophils # (Auto) 0.1 x10^3/uL (0.0-0.7) Basophils # (Auto) 0.0 x10^3/uL (0.0-0.2) Sodium Level 148 mmol/L (136-145) Potassium Level 3.2 mmol/L (3.5-5.1) Chloride Level 113 mmol/L (98-107) Carbon Dioxide Level 27 mmol/L (21-32) Anion Gap 8 (6-14) Blood Urea Nitrogen 18 mg/dL (7-20) Creatinine 0.8 mg/dL (0.6-1.0) Estimated GFR (Cockcroft-Gault) 85.3 BUN/Creatinine Ratio 23 (6-20) Glucose Level 105 mg/dL (70-99) Calcium Level 8.3 mg/dL (8.5-10.1) Total Bilirubin 0.7 mg/dL (0.2-1.0) Aspartate Amino Transf (AST/SGOT) 18 U/L (15-37) Alanine Aminotransferase (ALT/SGPT) 7 U/L (14-59) Alkaline Phosphatase 75 U/L (46-116) Total Protein 5.2 g/dL (6.4-8.2) Albumin 2.3 g/dL (3.4-5.0) Albumin/Globulin Ratio 0.8 (1.0-1.7) Assessment and Plan Assessmemt and Plan Problems Medical Problems: (1) RASHEED (acute kidney injury) Status: Acute (2) Generalized weakness Status: Acute (3) Hypernatremia Status: Acute (4) Unable to care for self Status: Acute (5) UTI (urinary tract infection) Status: Acute Comment Review of Relevant I have reviewed the following items dhiraj (where applicable) has been applied. Justifications for Admission Other Justification DARRIN BONE MD Jul 23, 2021 10:26
[2021-07-23 11:00] VITALS: BP 118/69
[2021-07-23 15:00] VITALS: BP 128/68
[2021-07-23] MEDS: cefTRIAXone IV Push 1 GM VIAL. IVP SCH (17:10)
--- NOTE | 2021-07-23 19:35 | PDOC ---
PROGRESS NOTES Date of Service DATE: 07/23/21 TIME: 19:30 Assessment Problems Medical Problems: (1) RASHEED (acute kidney injury)-this was likely due to dehydration which has been improving with rehydration. Status: Acute (2) Generalized weakness she is severely deconditioned. Status: Acute (3) Hypernatremia this is improving with rehydration. Status: Acute (4) Unable to care for self Status: Acute (5) UTI (urinary tract infection) she is on antibiotics. 6. She has a history of Parkinson's disease for which the carbidopa/levodopa has been restarted. I am not seeing rigidity or tremor. I am seeing impulsivity with eating. When fluid is in front of her she seems to be stuffing it in her mouth. She is having a hard time chewing but is not choking when swa llowing. The voice does not sound wet. It does not appear that her appetite is suppressed. She seems to be drinking and eating well. Its possible that she went a long time at home without adequate nutrition and is trying to catch up. She will clearly need prison unit for rehab attempt. Its not clear if she is going to be able to go home. Status: Acute Plan If she is eating and drinking adequately then she may transfer to rehab when the infection is controlled on oral antibiotics. It will need to be determined if she improves to the point of returning home will require a higher level of care. Subjective I am hungry. I am not in pain. Objective Vital Signs Date Time Temp Pulse Resp B/P (MAP) Pulse Ox O2 Delivery O2 Flow Rate FiO2 07/23/21 15:00 97.9 92 10 128/68 (88) 92 Room Air 97.9 Intake and Output 07/23/21 07:00 Output Total 0 ml Balance 0 ml Output Urine Total 0 ml # Voids 2 PHYSICAL EXAM Patient was eating when I entered the room. She had noodles hanging out of her mouth and all over the front of her gown. She was chewing and swallowing. Before her mouth was emptied she was trying to reach for more food. Despite this her speech was still clear and not garbled. The eyes were conjugate in the face symmetric. Muscle bulk was diminished. Tone was only slightly increased. There was no tremor. Movements were fairly fluid. She was generally weak but did not find focal weakness. She was able to partially raise each leg at the bending at the knee. Review of Relevant I have reviewed the following items dhiraj (where applicable) has been applied. Labs Laboratory Tests Test 07/22/21 06:00 07/23/21 06:06 White Blood Count 5.1 x10^3/uL (4.0-11.0) 4.2 x10^3/uL (4.0-11.0) Red Blood Count 3.45 x10^6/uL (3.50-5.40) 3.08 x10^6/uL (3.50-5.40) Hemoglobin 11.3 g/dL (12.0-15.5) 9.9 g/dL (12.0-15.5) Hematocrit 34.0 % (36.0-47.0) 30.1 % (36.0-47.0) Mean Corpuscular Volume 98 fL (79-100) 98 fL (79-100) Mean Corpuscular Hemoglobin 33 pg (25-35) 32 pg (25-35) Mean Corpuscular Hemoglobin Concent 33 g/dL (31-37) 33 g/dL (31-37) Red Cell Distribution Width 11.8 % (11.5-14.5) 12.0 % (11.5-14.5) Platelet Count 90 x10^3/uL (140-400) 85 x10^3/uL (140-400) Neutrophils (%) (Auto) 71 % (31-73) 66 % (31-73) Lymphocytes (%) (Auto) 18 % (24-48) 21 % (24-48) Monocytes (%) (Auto) 8 % (0-9) 9 % (0-9) Eosinophils (%) (Auto) 2 % (0-3) 3 % (0-3) Basophils (%) (Auto) 1 % (0-3) 1 % (0-3) Neutrophils # (Auto) 3.6 x10^3/uL (1.8-7.7) 2.8 x10^3/uL (1.8-7.7) Lymphocytes # (Auto) 0.9 x10^3/uL (1.0-4.8) 0.9 x10^3/uL (1.0-4.8) Monocytes # (Auto) 0.4 x10^3/uL (0.0-1.1) 0.4 x10^3/uL (0.0-1.1) Eosinophils # (Auto) 0.1 x10^3/uL (0.0-0.7) 0.1 x10^3/uL (0.0-0.7) Basophils # (Auto) 0.0 x10^3/uL (0.0-0.2) 0.0 x10^3/uL (0.0-0.2) Sodium Level 154 mmol/L (136-145) 148 mmol/L (136-145) Potassium Level 3.6 mmol/L (3.5-5.1) 3.2 mmol/L (3.5-5.1) Chloride Level 117 mmol/L (98-107) 113 mmol/L (98-107) Carbon Dioxide Level 27 mmol/L (21-32) 27 mmol/L (21-32) Anion Gap 10 (6-14) 8 (6-14) Blood Urea Nitrogen 26 mg/dL (7-20) 18 mg/dL (7-20) Creatinine 0.8 mg/dL (0.6-1.0) 0.8 mg/dL (0.6-1.0) Estimated GFR (Cockcroft-Gault) 85.3 85.3 BUN/Creatinine Ratio 33 (6-20) 23 (6-20) Glucose Level 93 mg/dL (70-99) 105 mg/dL (70-99) Calcium Level 8.7 mg/dL (8.5-10.1) 8.3 mg/dL (8.5-10.1) Magnesium Level 2.0 mg/dL (1.8-2.4) Total Bilirubin 1.4 mg/dL (0.2-1.0) 0.7 mg/dL (0.2-1.0) Aspartate Amino Transf (AST/SGOT) 16 U/L (15-37) 18 U/L (15-37) Alanine Aminotransferase (ALT/SGPT) < 6 U/L (14-59) 7 U/L (14-59) Alkaline Phosphatase 74 U/L (46-116) 75 U/L (46-116) Total Protein 5.8 g/dL (6.4-8.2) 5.2 g/dL (6.4-8.2) Albumin 2.8 g/dL (3.4-5.0) 2.3 g/dL (3.4-5.0) Albumin/Globulin Ratio 0.9 (1.0-1.7) 0.8 (1.0-1.7) Laboratory Tests Test 07/23/21 06:06 White Blood Count 4.2 x10^3/uL (4.0-11.0) Red Blood Count 3.08 x10^6/uL (3.50-5.40) Hemoglobin 9.9 g/dL (12.0-15.5) Hematocrit 30.1 % (36.0-47.0) Mean Corpuscular Volume 98 fL (79-100) Mean Corpuscular Hemoglobin 32 pg (25-35) Mean Corpuscular Hemoglobin Concent 33 g/dL (31-37) Red Cell Distribution Width 12.0 % (11.5-14.5) Platelet Count 85 x10^3/uL (140-400) Neutrophils (%) (Auto) 66 % (31-73) Lymphocytes (%) (Auto) 21 % (24-48) Monocytes (%) (Auto) 9 % (0-9) Eosinophils (%) (Auto) 3 % (0-3) Basophils (%) (Auto) 1 % (0-3) Neutrophils # (Auto) 2.8 x10^3/uL (1.8-7.7) Lymphocytes # (Auto) 0.9 x10^3/uL (1.0-4.8) Monocytes # (Auto) 0.4 x10^3/uL (0.0-1.1) Eosinophils # (Auto) 0.1 x10^3/uL (0.0-0.7) Basophils # (Auto) 0.0 x10^3/uL (0.0-0.2) Sodium Level 148 mmol/L (136-145) Potassium Level 3.2 mmol/L (3.5-5.1) Chloride Level 113 mmol/L (98-107) Carbon Dioxide Level 27 mmol/L (21-32) Anion Gap 8 (6-14) Blood Urea Nitrogen 18 mg/dL (7-20) Creatinine 0.8 mg/dL (0.6-1.0) Estimated GFR (Cockcroft-Gault) 85.3 BUN/Creatinine Ratio 23 (6-20) Glucose Level 105 mg/dL (70-99) Calcium Level 8.3 mg/dL (8.5-10.1) Total Bilirubin 0.7 mg/dL (0.2-1.0) Aspartate Amino Transf (AST/SGOT) 18 U/L (15-37) Alanine Aminotransferase (ALT/SGPT) 7 U/L (14-59) Alkaline Phosphatase 75 U/L (46-116) Total Protein 5.2 g/dL (6.4-8.2) Albumin 2.3 g/dL (3.4-5.0) Albumin/Globulin Ratio 0.8 (1.0-1.7) Microbiology 07/21/21 Blood Culture - Preliminary, Resulted NO GROWTH AFTER 2 DAYS 07/20/21 Urine Culture - Final, Complete Staphylococcus Simulans Medications Current Medications Sodium Chloride 1,000 ml @ 1,000 mls/hr 1X ONCE IV Last administered on 07/20/21at 16:22; Start 07/20/21 at 15:45; Stop 07/20/21 at 16:44; Status DC Ceftriaxone Sodium (Rocephin) 1 gm 1X ONCE IVP Last administered on 07/20/21at 16:52; Start 07/20/21 at 16:45; Stop 07/20/21 at 16:46; Status DC Rivastigmine Tartrate (Exelon) 3 mg BIDWMEALS PO Last administered on 07/23/21at 17:10; Start 07/20/21 at 17:00 Carbidopa/Levodopa (Sinemet 25/100) 1 tab [id number] PO Last administered on 07/20/21at 17:51; Start 07/20/21 at 18:00; Stop 07/20/21 at 19:35; Status DC Ringer's Solution 920 ml @ 920 mls/hr 1X ONCE IV Last administered on 07/20/21at 17:55; Start 07/20/21 at 17:00; Stop 07/20/21 at 17:59; Status DC Acetaminophen (Tylenol) 650 mg PRN Q6HRS PRN PO MILD PAIN / TEMP > 100.3'F; Start 07/20/21 at 18:00 Ondansetron HCl (Zofran) 4 mg PRN Q4HRS PRN IVP NAUSEA/VOMITING; Start 07/20/21 at 18:00 Hydralazine HCl (Apresoline Inj) 10 mg PRN Q4HRS PRN IVP ELEVATED BP, SEE COMMENTS; Start 07/20/21 at 18:00 Sodium Chloride 1,000 ml @ 75 mls/hr [id number] IV Last administered on 07/21/21at 22:40; Start 07/20/21 at 20:00; Stop 07/22/21 at 09:36; Status DC Ceftriaxone Sodium (Rocephin) 1 gm Q24H IVP Last administered on 07/23/21at 17:10; Start 07/21/21 at 18:00 Carbidopa/Levodopa (Sinemet 25/100) 1.5 tab QID PO Last administered on 07/23/21at 17:10; Start 07/20/21 at 21:00 Multivitamins (Thera M Plus) 1 tab DAILY PO Last administered on 07/23/21at 08:43; Start 07/21/21 at 09:00 Vitamin D (Vitamin D3) 1,000 unit BID PO Last administered on 07/23/21at 08:43; Start 07/20/21 at 21:00 Non-Formulary Medication (Rivastigmine Tartrate (Rivastigmine)) 3 mg BID PO ; Start 07/20/21 at 21:00; Status UNV Lactobacillus Rhamnosus (Culturelle) 1 cap BID PO Last administered on 07/23/21at 08:43; Start 07/21/21 at 21:00 Dextrose/Sodium Chloride 1,000 ml @ 75 mls/hr [id number] IV Last administered on 07/22/21at 21:23; Start 07/22/21 at 09:45; Stop 07/23/21 at 10:25; Status DC Potassium Chloride (Klor-Con) 20 meq 1X ONCE PO Last administered on 07/23/21at 11:32; Start 07/23/21 at 09:45; Stop 07/23/21 at 09:46; Status DC Active Scripts Active Reported One-Daily Multi-Vitamin (Multivitamin) 1 Each Tablet 1 Tab PO DAILY 30 Days Rivastigmine (Rivastigmine Tartrate) 3 Mg Capsule 3 Mg PO BID Vitamin D3 Complete Caplet (Mv-Mn/Iron/Fa/Herbal Cmplx#190) 1 Each Tablet 1 Each PO BID Carbidopa-Levodopa 25-100 Tab (Carbidopa/Levodopa) 1 Each Tablet 1.5 Tab PO QID 30 Days Vitals/I & O Vital Sign - Last 24 Hours 07/22/21 07/22/21 07/23/21 07/23/21 20:00 23:07 03:28 07:00 Temp 98.2 97.6 96.1 98.2 97.6 96.1 Pulse 78 74 93 Resp 18 18 14 B/P (MAP) 126/72 (90) 121/70 (87) 151/99 (116) Pulse Ox 97 97 93 O2 Delivery Room Air Room Air Room Air Room Air 07/23/21 07/23/21 07/23/21 08:00 11:00 15:00 Temp 97.3 97.9 97.3 97.9 Pulse 57 92 Resp 10 10 B/P (MAP) 118/69 (85) 128/68 (88) Pulse Ox 92 O2 Delivery Room Air Room Air Room Air Intake and Output 07/22/21 07/22/21 07/23/21 15:00 23:00 07:00 Output Total 0 ml Balance 0 ml Justicifation of Admission Dx: Justifications for Admission: Justification of Admission Dx: N/A ML ELLIOTT MD Jul 23, 2021 19:35
[2021-07-23 23:14] VITALS: BP 103/58
[2021-07-24 03:00] VITALS: BP 163/84
[2021-07-24 07:00] VITALS: BP 160/88
[2021-07-24] MEDS: CARBIDOPA/LEVODOPA 25/100MG TABLET PO SCH ×2 (08:09→13:00)
[2021-07-24] MEDS: LACTOBACILLUS RHAMNOSUS GG 1 CAPSULE. PO SCH (08:09)
[2021-07-24] MEDS: MULTIVITAMIN with MINERAL TABLET. PO SCH (08:09)
[2021-07-24] MEDS: CHOLECALCIFEROL (VITAMIN D3) 1,000 UNIT TABLET PO SCH (08:09)
[2021-07-24] MEDS: RIVASTIGMINE 1.5 MG CAPSULE. PO SCH (08:09)
--- NOTE | 2021-07-24 09:44 | PDOC ---
DATE OF SERVICE DATE: 07/24/21 TIME: 09:43 SUBJECTIVE ROS Resting comfortably, denies any complaints. Denies N/V. No SOB OBJECTIVE Vital Signs Vital Signs Date Time Temp Pulse Resp B/P (MAP) Pulse Ox O2 Delivery O2 Flow Rate FiO2 07/24/21 08:00 Room Air 07/24/21 07:00 98.2 60 18 160/88 (112) 100 98.2 I & 0 Intake and Output 07/24/21 07:00 Intake Total 600 ml Output Total 200 ml Balance 400 ml Intake Oral 600 ml Output Urine Total 200 ml # Voids 2 PHYSICAL EXAM Physical Exam GENERAL : NAD HEENT:OM moist NECK: supple LUNGS: CTA, Non labored CARDIAC: Without S3 or rub. ABDOMEN: Soft, nontender.BS + EXTREMITIES: No edema, or Cyanosis NEURO Grossly normal PSYCH poor memory and difficulty following No Rico DIAGNOSIS/ASSESSMENT Assessment & Plan RASHEED - 2/2 Dehydration, resolved. Supportive care, maintain fluid balance, strict I/O (not recorded) , avoid nephrotoxins Dehydration secondary to reduced intravascular volume, likely related to immobility. Hypernatremia due to free water deficit, improving .Encourage water intake, switched on 07/22 to Hypotonic fluid . DC IVF if good PO intake including fluids . Defer to Primary Chronic kidney disease stage II. Anemia- Hgb trending down. Initial High Hgb could be sec to [place] . Defer to Primary to trend and Monitor Abnormal Renal US - reveals moderate to severe left hydronephrosis . No Urinary retention on US Recommend evaluation by Urology. COMMENT/RELEVANT DATA Meds Current Medications Medications (Trade) Dose Ordered Sig/Yoanna Start Time Stop Time Status Last Admin Dose Admin Acetaminophen (Tylenol) 650 mg PRN Q6HRS PRN 07/20/21 18:00 Carbidopa/Levodopa (Sinemet 25/100) 1.5 tab QID 07/20/21 21:00 07/24/21 08:09 1.5 TAB Ceftriaxone Sodium (Rocephin) 1 gm Q24H 07/21/21 18:00 07/23/21 17:10 1 GM Dextrose/Sodium Chloride 1,000 ml @ 75 mls/hr [id number] 07/22/21 09:45 07/23/21 10:25 DC 07/22/21 21:23 75 MLS/HR Hydralazine HCl (Apresoline Inj) 10 mg PRN Q4HRS PRN 07/20/21 18:00 Lactobacillus Rhamnosus (Culturelle) 1 cap BID 07/21/21 21:00 07/24/21 08:09 1 CAP Multivitamins (Thera M Plus) 1 tab DAILY 07/21/21 09:00 07/24/21 08:09 1 TAB Non-Formulary Medication (Rivastigmine Tartrate (Rivastigmine)) 3 mg BID 07/20/21 21:00 UNV Ondansetron HCl (Zofran) 4 mg PRN Q4HRS PRN 07/20/21 18:00 Potassium Chloride (Klor-Con) 20 meq 1X ONCE 07/23/21 09:45 07/23/21 09:46 DC 07/23/21 11:32 20 MEQ Ringer's Solution 920 ml @ 920 mls/hr 1X ONCE 07/20/21 17:00 07/20/21 17:59 DC 07/20/21 17:55 920 MLS/HR Rivastigmine Tartrate (Exelon) 3 mg BIDWMEALS 07/20/21 17:00 07/24/21 08:09 3 MG Sodium Chloride 1,000 ml @ 75 mls/hr [id number] 07/20/21 20:00 07/22/21 09:36 DC 07/21/21 22:40 75 MLS/HR Vitamin D (Vitamin D3) 1,000 unit BID 07/20/21 21:00 07/24/21 08:09 1,000 UNIT Results All relevant outside records, renal labs, imaging studies, telemetry/EKG's were reviewed. Justicifation of Admission Dx: Justifications for Admission: Justification of Admission Dx: N/A AXEL NATARAJAN MD Jul 24, 2021 09:44
[2021-07-24] MEDS ORDERED: CIPR500T94 PO (10:15)
--- NOTE | 2021-07-24 10:17 | SNU/HH DC ---
DISCHARGE ORDERS DISCHARGE INFORMATION: DISCHARGE DATE: Jul 24, 2021 FINAL DIAGNOSIS Problems Medical Problems: (1) RASHEED (acute kidney injury) Status: Acute (2) Generalized weakness Status: Acute (3) Hypernatremia Status: Acute (4) Unable to care for self Status: Acute (5) UTI (urinary tract infection) Status: Acute CONDITION ON DISCHARGE: Stable CODE STATUS: Code Status: Full CUSTODIAL: SNF STAY <30 DAYS: Yes POST DISCHARGE ORDERS: ACTIVITY ORDERS: Resume previous activity, Activity as tolerated WEIGHT BEARING STATUS: Full weight bearing, As tolerated DIET AFTER DISCHARGE: Regular WOUND/INCISION CARE: Ice to area for comfort CHECKS AFTER DISCHARGE: CHECKS AFTER DISCHARGE: Check blood press - daily, Check your Temp as needed TREATMENT/EQUIPMENT ORDERS: ADAPTIVE EQUIPMENT NEEDED: Walker Physical Therapy For: Evalulation/Treatment Occupational Therapy For: Evaluation/Treatment DISCHARGE MEDICATIONS: Home Meds Active Scripts Ciprofloxacin Hcl (CIPRO) 500 Mg Tablet, 1 TAB PO BID for pyelonephritis for 10 Days, #20 TAB 0 Refills Prov:DARRIN BONE MD 07/24/21 Reported Medications Multivitamin (One-Daily Multi-Vitamin) 1 Each Tablet, 1 TAB PO DAILY for supplement for 30 Days, #30 TAB 0 Refills 07/20/21 Rivastigmine Tartrate (RIVASTIGMINE) 3 Mg Capsule, 3 MG PO BID for parkinsons, CAP 07/20/21 Mv-Mn/Iron/Fa/Herbal Cmplx#190 (VITAMIN D3 COMPLETE CAPLET) 1 Each Tablet, 1 EACH PO BID for supplement, TAB 07/20/21 Carbidopa/Levodopa (CARBIDOPA-LEVODOPA 25-100 TAB) 1 Each Tablet, 1.5 TAB PO QID for parkinsons for 30 Days, #180 TAB 0 Refills 07/20/21 DARRIN BONE MD Jul 24, 2021 10:17
--- NOTE | 2021-07-24 10:18 | PDOC ---
[employer] PROGRESS NOTE Date of Service DOS: DATE: 07/24/21 TIME: 10:17 Chief Complaint Chief Complaint Hypernatremia RASHEED Left Hydronephrosis Parkinsonism Elevated bilirubin Lactic acidosis History of Present Illness History of Present Illness Ms. Hammonds is a 71-year-old female past medical history of Parkinson disease with signs of early dementia comes in via EMS to the ED for further evaluation. Family had called to check on her and was unable to get a hold of her for the last 2 days patient notes she not been eating and drinking and did not take any medication for at least 2 days lives by herself. Is pleasantly confused in the ED initial evaluation. Initial labs of Hb 16.2, NA 154, BUN 52, CR 1.4, calcium 11.1 bilirubin 2.2, CK 249, lactic acid 2.7 EKG sinus rhythm rate of 94 bpm normal axis intervals QTC [address] segment elevations or T WI. Renal sonogram reveals moderate to severe left hydronephrosis. Chest radiograph with no acute findings Due to confusion she underwent CT head which showed no acute intracranial ab normality. 07/21: Seen bedside weak not moving her upper extremities well. Nursing unable to obtain IV access. She knows she needs assistance for feeding and her sister only helps her at home which she lives alone. 07/22 Patient evaluated examined at bedside. Flat affect. Difficult to understand. Said she was feeling okay though. CT done this morning results pending. Urolog y consulted. PT OT recommending SNF placement. Otherwise continue current. Nephrology following as well. 07/23 Patient evaluated examined at bedside. Difficult to understand but did not have any complaints to me. Planning 2-week antibiotic course for urinary infection. Confirmed with bedside nurse patient has pretty adequate p.o. intake will stop fluids. Needs SNF placement. Can try to start working on this as she may be discharged ready in the next day or 2. 07/24 Patient evaluated examined at bedside. Able to discharge to [facility] today. We will switch antibiotics to oral. Gram-negative and spent on discharge. 19 minutes advance care planning Vitals/I&O Vitals/I&O: Vital Signs Date Time Temp Pulse Resp B/P (MAP) Pulse Ox O2 Delivery O2 Flow Rate FiO2 07/24/21 08:00 Room Air 07/24/21 07:00 98.2 60 18 160/88 (112) 100 98.2 I & O 07/23/21 07/23/21 07/24/21 15:00 23:00 07:00 Intake Total 240 ml 360 ml Output Total 200 ml Balance 40 ml 360 ml Physical Exam General: Alert, Cooperative, No acute distress Heart: Regular rate Lungs: Clear Abdomen: Normal bowel sounds, Soft Extremities: No edema, Normal pulses Skin: Other (Xerosis) Labs Labs: Laboratory Tests Test 07/24/21 09:35 SARS-CoV-2 Antigen (Rapid) Negative (NEGATIVE) Assessment and Plan Assessmemt and Plan Problems Medical Problems: (1) RASHEED (acute kidney injury) Status: Acute (2) Generalized weakness Status: Acute (3) Hypernatremia Status: Acute (4) Unable to care for self Status: Acute (5) UTI (urinary tract infection) Status: Acute Comment Review of Relevant I have reviewed the following items dhiraj (where applicable) has been applied. Justifications for Admission Other Justification DARRIN BONE MD Jul 24, 2021 10:18
[2021-07-24 11:00] VITALS: BP 182/94
[2021-07-24 12:50] LABS: BASO % 1 % (0-3); EOS # 0.1 x10^3/uL (0.0-0.7); EOS % 2 % (0-3); HEMATOCRIT 38.6 % (36.0-47.0); HEMOGLOBIN 12.9 g/dL (12.0-15.5); LYMPH # 1.1 x10^3/uL (1.0-4.8); LYMPH % 20 % (24-48); MEAN CORPUSCULAR HEMOGLOBIN 32 pg (25-35); MEAN CORPUSCULAR HGB CONC 34 g/dL (31-37); MEAN CORPUSCULAR VOLUME 96 fL (79-100); MONO # 0.4 x10^3/uL (0.0-1.1); MONO % 7 % (0-9); NEUT # 3.9 x10^3/uL (1.8-7.7); NEUT % 70 % (31-73); PLATELET COUNT 133 x10^3/uL (140-400); WHITE BLOOD COUNT 5.5 x10^3/uL (4.0-11.0)
[2021-07-24 13:01] LABS: CALCIUM 9.6 mg/dL (8.5-10.1); CREATININE 0.7 mg/dL (0.6-1.0); GFR 99.5; POTASSIUM 3.9 mmol/L (3.5-5.1)
--- NOTE | 2021-07-24 13:47 | NUR ---
Discharge Note: PT DISCHARGED TO [facility]. PT LEFT FACILITY VIA MEDICOACH TRANSPORT. PT ALERT AND STABLE PRIOR TO DISCHARGE. PT MIDLINE REMOVED FROM RUE WITHOUT COMPLICATIONS, BANDAGE APPLIED. REPORT CALLED TO JONO AT 1340. EDUCATED ABOUT DISCHARGE INSTRUCTIONS, DISCHARGE MEDICATIONS, AND FOLLOW-UP CARE INSTRUCTIONS, NO CONCERNS VOICED. PT DID NOT HAVE ANY PERSONAL BELONGINGS IN ROOM AT DISCHARGE. ED SMITH Discharge instructions and discharge home medications reviewed with Patient and a copy given. All questions have been answered and understanding verbalized.
== END 2021-07-24 13:50 | DRG 640 ==
LOC: ER 15:24 → 5 NORTH 17:00
PROVIDERS: ADMIT Internal Medicine; ATTEND Internal Medicine
DX: E86.0 Dehydration (principal); N17.0 Acute kidney failure with tubular necrosis; N39.0 Urinary tract infection, site not specified; G93.40 Encephalopathy, unspecified; N13.6 Pyonephrosis; E87.0 Hyperosmolality and hypernatremia; E87.2 Acidosis; F02.80 Dementia in other diseases classified elsewhere, unspecified severity, without behavioral disturbance, psychotic disturbance, mood disturbance, and anxiety; G20 Parkinson's disease; K80.20 Calculus of gallbladder without cholecystitis without obstruction; N18.2 Chronic kidney disease, stage 2 (mild); R62.7 Adult failure to thrive; Z83.3 Family history of diabetes mellitus; M19.90 Unspecified osteoarthritis, unspecified site; Z60.2 Problems related to living alone; Z20.822 Contact with and (suspected) exposure to COVID-19
CPT/HCPCS: 36415; 36569; 70450; 71045; 74176; 76770; 80048; 80053; 81001; 82306; 82550; 83605; 83735; 83880; 84100; 84484; 85025; 87040; 87086; 87426; 87428; 93005; 96361; 96374; J0696; J7030; J7042; J7120; U0003; 92526-GN; 92610-GN; 97116-GP; 97530-GO; 97530-GP; 97535-GO; 99285-25; G0378